=== PATIENT | male | born 1975 | race Caucasian/White ===

== ENCOUNTER 2023-10-31 17:08 | Inpatient (IN) | payer BC ==
[~2023-10-31] VITALS: Ht 182.9 cm; Wt 71.3 kg
[2023-10-31 18:46] LABS: Basophils # (auto) 0 10 ^3/uL (0-0.2); Eosinophils # (auto) 0.1 10 ^3/uL (0-0.8); Lymphocytes # (auto) 1.8 10 ^3/uL (0.4-5.4); Monocytes # (auto) 0.5 10 ^3/uL (0-1.3); Neutrophils # (auto) 3.8 10 ^3/uL (1.6-8.6); Nucleated Red Blood Cells % 0.2 %; White Blood Cell 6.2 10^3/uL (4.4-10.8)
[2023-10-31 18:48] LABS: Basophils % (auto) 0.4 % (0.0-2.0); Eosinophils % (auto) 1.3 % (0.0-7.0); Hematocrit 43.2 % (41.0-53.0); Lymphocytes % (auto) 28.6 % (10.0-50.0); Mean Corpuscular Hemoglobin 37.3 pg (28.0-32.0); Mean Corpuscular Hgb Conc. 34.8 g/dL (32.0-36.0); Mean Corpuscular Volume 107.2 fL (80.0-100.0); Monocytes % (auto) 8.6 % (0.0-12.0); Neutrophils % (auto) 61.1 % (37.0-80.0); Red Blood Cells 4.03 10^6/uL (4.5-5.90); Red Cell Distribution Width 12.4 % (11.8-14.3)
[2023-10-31 19:03] LABS: Chloride 107 mmol/L (98-107); Potassium 3.9 mmol/L (3.5-5.1); Sodium 138 mmol/L (136-145)
[2023-10-31 19:04] LABS: Anion Gap 8 (5-15); Calcium 9.3 mg/dL (8.7-10.4); Carbon Dioxide 23 mmol/L (20-30)
[2023-10-31 19:09] LABS: BUN/Creatinine Ratio 8.6 (10.0-20.0); Blood Urea Nitrogen 6 mg/dL (9-23); Glucose 91 mg/dL (74-106)
[2023-10-31] MEDS ORDERED: VANCOMYCIN 1GM/200ML 200 ML IV ONE (19:30)
[2023-10-31 20:44] LABS: Basophils # (auto) 0 10 ^3/uL (0-0.2); Eosinophils # (auto) 0.1 10 ^3/uL (0-0.8); Hemoglobin 13.5 g/dL (13.5-17.5); Monocytes # (auto) 0.4 10 ^3/uL (0-1.3); Nucleated Red Blood Cells % 0.1 %; Red Blood Cells 3.69 10^6/uL (4.5-5.90); White Blood Cell 5.4 10^3/uL (4.4-10.8)
[2023-10-31 20:46] LABS: Basophils % (auto) 0.3 % (0.0-2.0); Eosinophils % (auto) 1.2 % (0.0-7.0); Hematocrit 40.5 % (41.0-53.0); Lymphocytes # (auto) 1.7 10 ^3/uL (0.4-5.4); Lymphocytes % (auto) 31.6 % (10.0-50.0); Mean Corpuscular Hemoglobin 36.6 pg (28.0-32.0); Mean Corpuscular Hgb Conc. 33.3 g/dL (32.0-36.0); Mean Corpuscular Volume 109.9 fL (80.0-100.0); Monocytes % (auto) 7.6 % (0.0-12.0); Neutrophils # (auto) 3.2 10 ^3/uL (1.6-8.6); Neutrophils % (auto) 59.3 % (37.0-80.0); Red Cell Distribution Width 12.4 % (11.8-14.3)
[2023-10-31] MEDS ORDERED: DOCUSATE SOD 100 MG CAP PO PRN (21:00)
[2023-10-31] MEDS ORDERED: MORPHINE SULFATE INJ 2 MG/ml SYRG IV PRN ×2 (21:00→22:30)
[2023-10-31] MEDS ORDERED: hydrALAZINE HCL 20 MG/ML VL IV PRN (21:00)
[2023-10-31] MEDS ORDERED: ACETAMINOPHEN 325 MG TAB PO PRN (21:00)
[2023-10-31] MEDS: SODIUM CHLORIDE 0.9% 1,000 ML IV SCH (21:00)
[2023-10-31] MEDS ORDERED: ONDANSETRON HCL 4 MG/2 ML VIAL IV PRN (21:00)
[2023-10-31] MEDS ORDERED: VANCOMYCIN PER PHARMACY 0 MG IV SCH (21:00)
[2023-10-31] MEDS ORDERED: HYDROcodone-ACET 5/325MG TAB PO PRN (21:00)
[2023-10-31 21:45] VITALS: PULSE 63; RESP 18; O2SAT 96
[2023-10-31] MEDS ORDERED: SODIUM CHLORIDE 0.9% 1,000 ML IV ONE (22:15)
[2023-10-31] MEDS: ASCORBIC ACID 500 MG TAB PO SCH (22:19)
[2023-10-31] MEDS ORDERED: NITROGLYCERIN 0.4 MG SL TAB SL PRN (22:30)
[2023-11-01] MEDS: VANCOMYCIN 1GM/200ML 200 ML IV SCH ×3 (04:26→20:14)
[2023-11-01 05:22] VITALS: RESP 18
[2023-11-01 06:27] LABS: Basophils # (auto) 0 10 ^3/uL (0-0.2); Eosinophils # (auto) 0.1 10 ^3/uL (0-0.8); Lymphocytes % (auto) 28.8 % (10.0-50.0); Neutrophils # (auto) 2.1 10 ^3/uL (1.6-8.6); White Blood Cell 3.6 10^3/uL (4.4-10.8)
[2023-11-01 06:34] LABS: Hematocrit 37.3 % (41.0-53.0); Hemoglobin 12.7 g/dL (13.5-17.5); Mean Corpuscular Hgb Conc. 34.1 g/dL (32.0-36.0); Mean Corpuscular Volume 108.4 fL (80.0-100.0); Monocytes # (auto) 0.3 10 ^3/uL (0-1.3); Monocytes % (auto) 9.5 % (0.0-12.0); Neutrophils % (auto) 58.7 % (37.0-80.0); Red Blood Cells 3.44 10^6/uL (4.5-5.90); Red Cell Distribution Width 12.1 % (11.8-14.3)
[2023-11-01 06:40] LABS: Alanine Aminotransferase 47 U/L (7-40); Alkaline Phosphatase 80 U/L (46-116); Anion Gap 9 (5-15); BUN/Creatinine Ratio 11.1 (10.0-20.0); Blood Urea Nitrogen 6 mg/dL (9-23); Calcium 8.1 mg/dL (8.7-10.4); Carbon Dioxide 20 mmol/L (20-30); Chloride 108 mmol/L (98-107); Glucose 77 mg/dL (74-106); Potassium 3.7 mmol/L (3.5-5.1); Sodium 137 mmol/L (136-145)
[2023-11-01 06:41] LABS: Albumin 3.5 g/dL (3.2-4.8); Aspartate Aminotransferase 70 U/L (13-40); Bilirubin, Total 1.6 mg/dL (0.2-1.0); Total Protein 5.9 g/dL (5.7-8.2)
[2023-11-01] MEDS: ASCORBIC ACID 500 MG TAB PO SCH ×2 (08:21→21:14)
[2023-11-01] MEDS: ENOXAPARIN SOD 40 MG/0.4 ML SYRINGE SC SCH (08:22)
[2023-11-01] MEDS: ZINC SULFATE 220mg CAP or TAB PO SCH (08:22)
[2023-11-01] MEDS: cefTRIAXone 1GM/50ML D5W 50 ML IV SCH (08:22)
[2023-11-01 09:00] VITALS: BP 159/79; PULSE 92; RESP 16; TEMP 98; O2SAT 97
[2023-11-01 13:00] VITALS: BP 148/85; PULSE 73; RESP 12; TEMP 98.4; O2SAT 99
[2023-11-01] MEDS: SODIUM CHLORIDE 0.9% 1,000 ML IV SCH (13:40)
[2023-11-01] MEDS ORDERED: LORazepam 2MG/ML-1ML VIAL IV PRN (13:45)
[2023-11-01 17:00] VITALS: BP 134/83; PULSE 71; RESP 16; TEMP 98.1; O2SAT 99
[2023-11-01 20:00] VITALS: PULSE 69; RESP 16
[2023-11-01 22:00] VITALS: BP 128/83; PULSE 69; RESP 16; TEMP 97.4; O2SAT 98
[2023-11-02] MEDS: VANCOMYCIN 1GM/200ML 200 ML IV SCH ×2 (03:02→12:00)
[2023-11-02 05:00] VITALS: BP 117/88; PULSE 70; RESP 16; TEMP 97.5; O2SAT 99
[2023-11-02] MEDS: SODIUM CHLORIDE 0.9% 1,000 ML IV SCH (05:33)
[2023-11-02 08:00] VITALS: PULSE 69; RESP 18; O2SAT 96
[2023-11-02 09:00] VITALS: BP 134/80; PULSE 69; RESP 16; TEMP 98.6; O2SAT 99
[2023-11-02] MEDS: ENOXAPARIN SOD 40 MG/0.4 ML SYRINGE SC SCH (10:03)
[2023-11-02] MEDS: ZINC SULFATE 220mg CAP or TAB PO SCH (10:03)
[2023-11-02] MEDS: ASCORBIC ACID 500 MG TAB PO SCH (10:03)
[2023-11-02] MEDS: cefTRIAXone 1GM/50ML D5W 50 ML IV SCH (10:03)
[2023-11-02] MEDS ORDERED: LEVO750T40 PO (16:23)
[2023-11-02 17:00] VITALS: BP 143/86; PULSE 71; RESP 18; TEMP 98.6; O2SAT 100
== END 2023-11-02 17:22 | disposition home or self-care (01) | DRG 603 ==
LOC: ER 17:08 → OVERFLOW 22:31 → EAST 11-01 04:38
PROVIDERS: ADMIT Nurse Practitioner Family; ATTEND Nurse Practitioner Family
DX: L03.116 Cellulitis of left lower limb (principal); F10.139 Alcohol abuse with withdrawal, unspecified; F17.210 Nicotine dependence, cigarettes, uncomplicated; G62.9 Polyneuropathy, unspecified; I10 Essential (primary) hypertension; Z80.8 Family history of malignant neoplasm of other organs or systems
CPT/HCPCS: 36415; 73700; 73718; 80048; 80053; 80202; 82962; 83605; 85025; 87040; 87081; 96361; 96365; G0378

== ENCOUNTER 2025-04-08 12:48 | Inpatient (IN) | payer BC ==
[~2025-04-08] VITALS: Ht 185.4 cm; Wt 65.6 kg
[~2025-04-08 12:48] MED LIST: LEVO750T40 PO
--- NOTE | 2025-04-08 13:38 | ECG ---
[facility] Test Date: 2025-04-08 Test Time: 13:25:10 Pat Name: ELIZA COLON Department: ER Room: Gender: M Receiving Room Clerk: ALVAREZ : 1975 Requested By: NICK WHARTON Order Number: [id number] Reading MD: Measurements Intervals [place] Rate: 126 P: 69 IN: 111 QRS: 129 QRSD: 98 T: 77 QT: 427 QTc: 619 Interpretive Statements Sinus tachycardia Right axis deviation Abnormal R-wave progression, late transition Nonspecific T abnrm, anterolateral leads Prolonged QT interval Please click the below link to view image of tracing.
--- NOTE | 2025-04-08 13:46 | ED.PDOC ---
History of Present Illness HPI Comments 50 year old male with a Hx of Liver Failure and Alcohol Abuse presents to the ED for the c/c of Generalized weakness w/ associated Dizziness. Pt states that he fainted and fell backwards and landed on his head 2x weeks ago and has since felt weak and dizzy with no alleviating factors but a worsening factor of standing. Pt notes his last drink was right before presenting to the ED. Pt also notes of Marijuana and Tobacco use. No other associated symptoms, modifiers, recent injuries or sick contacts present at this time. Chief Complaint: General Weakness Time Seen by MD: 13:43 Primary Care Provider: CARLY Reviewed Notes: Nurses Notes, Medications, Allergies Allergies: Coded Allergies: NO KNOWN ALLERGIES (Unverified , 10/31/23) Home Meds Active Scripts Levofloxacin Hemihydrate (LEVOFLOXACIN) 750 Mg Tab, 1 TAB PO DAILY for 10 Days, #10 TAB Prov:JORGITO ABAD DO 11/02/23 Information Source: Patient Mode of Arrival: Ambulatory Severity: Moderate Timing: Weeks Duration: Since onset Prehospital treatment: None Past Medical History PAST MEDICAL HISTORY: HTN Surgical History: Cholecystectomy Family History Family History: Family hx of Cancer Social History Smoker: Cigarettes Alcohol: Heavy Drugs: Marijuana Lives In: Home Constitutional: reports: weakness; denies: chills, diaphoresis, fatigue, fever, malaise, sweats, others EENTM: denies: blurred vision, double vision, ear bleeding, ear discharge, ear drainage, ear pain, ear ringing, eye pain, eye redness, hearing loss, mouth pain, mouth swelling, nasal discharge, nose bleeding, nose congestion, nose pain, photophobia, tearing, throat pain, throat swelling, voice changes, others Respiratory: denies: cough, hemoptysis, orthopnea, SOB at rest, shortness of breath, SOB with excertion, stridor, wheezing, others Cardiovascular: denies: chest pain, dizzy spells, diaphoresis, Dyspnea on exertion, edema, irregular heart beat, left arm pain, lightheadedness, palpitations, PND, syncope, others Gastrointestinal: denies: abdomen distended, abdominal pain, blood streaked bowels, constipated, diarrhea, dysphagia, difficulty swallowing, hematemesis, melena, nausea, poor appetite, poor fluid intake, rectal bleeding, rectal pain, vomiting, others Genitourinary: denies: burning, dysuria, flank pain, frequency, hematuria, incontinence, penile discharge, penile sore, pain, testicle pain, testicle swelling, urgency, others Neurological: reports: dizziness; denies: fainting, headache, left sided numbness, left sided weakness, numbness, paresthesia, pre-existing deficit, right sided numbness, right sided weakness, seizure, speech problems, tingling, tremors, weakness, others Musculoskeletal: denies: back pain, gout, joint pain, joint swelling, muscle pain, muscle stiffness, neck pain, others Integumetry: denies: bruises, change in color, change in hair/nails, dryness, laceration, lesions, lumps, rash, wounds, others Allergic/Immunocompromised: denies: Difficulty Healing, Frequent Infections, Hives, Itching, others Hematologic/Lymphatic: denies: anemia, blood clots, easy bleeding, easy bruising, swollen glands, others Endocrine: denies: excessive hunger, excessive sweating, excessive thirst, excessive urination, flushing, intolerance to cold, intolerance to heat, unexplained weight gain, unexplained weight loss, others Psychiatric: denies: anxiety, bipolar disorder, depression, hopeless, panic disorder, schizophrenia, sleepless, suicidal, others All Other Systems: Reviewed and Negative Physical Exam General Appearance: Moderate Distress, Normal HEENT: Normal ENT Inspection, Pharynx Normal, TMs Normal Neck: Full Range of Motion, Non-Tender, Normal, Normal Inspection Respiratory: Chest Non-Tender, Lungs Clear, No Accessory Muscle Use, No Respiratory Distress, Normal Breath Sounds Cardiovascular: No Edema, No JVD, No Murmur, No Gallop, Normal Peripheral Pulses, Regular Rate/Rhythm Breast Exam: Deferred Gastrointestinal: No Organomegaly, Non Tender, No Pulsatile Mass, Normal Bowel Sounds, Soft Genitalia: Deferred Pelvic: Deferred Rectal: Deferred Extremities: No calf tenderness, Normal capillary refill, Normal inspection, Normal range of motion, Non-tender, No pedal edema Musculoskeletal : Apperance: Normal Neurologic: Alert, commercial interior designer II-XII nml as Tested, No Motor Deficits, Normal Affect, Normal Mood, No Sensory Deficits Cerebellar Function: NOT DONE Reflexes: NOT DONE Skin: Dry, Jaundice, Normal Color, Warm Peripheral Pulses: 3+ Radial (R), 3+ Radial (L) Lymphatic: No Adenopathy Was a procedure done? Was a procedure done?: No Differential Dx Considerations may include: Liver disease Electrolyte imbalance X-Ray, Labs, Meds, VS Vital Signs Date Time Temp Pulse Resp B/P (MAP) Pulse Ox O2 Delivery O2 Flow Rate FiO2 04/08/25 14:00 97.8 90 12 132/79 (96) 100 97.8 04/08/25 14:00 Room Air* 0 21 04/08/25 13:25 126 04/08/25 12:52 98.7 133 20 91/65 (74) 98 98.7 Lab Test 04/08/25 13:50 Range/Units White Blood Count 6.1 4.4-10.8 10^3/uL Red Blood Count 2.80 L 4.5-5.90 10^6/uL Hemoglobin 11.0 L 13.5-17.5 g/dL Hematocrit 31.8 L 41.0-53.0 % Mean Corpuscular Volume 113.5 H 80.0-100.0 fL Mean Corpuscular Hemoglobin 39.3 H 28.0-32.0 pg Mean Corpuscular Hemoglobin Concent 34.6 32.0-36.0 g/dL Red Cell Distribution Width 17.3 H 11.8-14.3 % Platelet Count 150 140-450 10^3/uL Mean Platelet Volume 9.1 6.9-10.8 fL Neutrophils (%) (Auto) 75.4 37.0-80.0 % Lymphocytes (%) (Auto) 13.6 10.0-50.0 % Monocytes (%) (Auto) 10.4 0.0-12.0 % Eosinophils (%) (Auto) 0.1 0.0-7.0 % Basophils (%) (Auto) 0.5 0.0-2.0 % Neutrophils # (Auto) 4.6 1.6-8.6 10 ^3/uL Lymphocytes # (Auto) 0.8 0.4-5.4 10 ^3/uL Monocytes # (Auto) 0.6 0-1.3 10 ^3/uL Eosinophils # (Auto) 0 0-0.8 10 ^3/uL Basophils # (Auto) 0 0-0.2 10 ^3/uL Nucleated Red Blood Cells 0.1 % Platelet Estimate Pending Prothrombin Time 17.5 H 9.3-11.8 sec Prothrombin Time INR 1.74 H 0.9-1.15 Activated Partial Thromboplast Time 41.0 H 24.5-34.5 SEC Sodium Level 134 L 136-145 mmol/L Potassium Level 4.1 3.5-5.1 mmol/L Chloride Level 91 L 98-107 mmol/L Carbon Dioxide Level 19 L 20-31 mmol/L Anion Gap 24 H 5-15 Blood Urea Nitrogen 8 L 9-23 mg/dL Creatinine 0.85 0.700-1.30 mg/dL Glomerular Filtration Rate Calc 105 >90 mL/min BUN/Creatinine Ratio 9.4 L 10.0-20.0 Serum Glucose 71 L 74-106 mg/dL Lactic Acid Level 13.2 *H 0.4-2.0 mmol/L Calcium Level 9.1 8.7-10.4 mg/dL Total Bilirubin 21.2 H 0.2-1.0 mg/dL Aspartate Amino Transferase (AST) 342 H 13-40 U/L Alanine Aminotransferase (ALT) 106 H 7-40 U/L Alkaline Phosphatase 309 H 46-116 U/L Total Protein 5.6 L 5.7-8.2 g/dL Albumin 3.0 L 3.2-4.8 g/dL Plasma/Serum Blood Alcohol 255.1 H <10 mg/dL Current Medications Medications (Trade) Dose Ordered Sig/Nicolás Route Start Time Stop Time Status Last Admin Vancomycin HCl 200 ml @ 200 mls/hr ONCE ONCE IV 04/08/25 13:45 04/08/25 14:44 DC 04/08/25 14:06 Patient alert. Vitals stable. He is jaundiced. Answering all questions. Possible sepsis. Establish intravenous access. Was given fluids. His last drink was few hours ago. Counseled patient on effects of drinking alcohol for 15 minutes. Explained to the patient. Continue monitoring. CT of the head reviewed within normal limits. Chest x-ray reviewed does not show any acute process. PATIENT: ELIZA COLON ACCT: [id number] UNIT: [id number] : 1975 LOC: ER ROOM / BED: / AGE / SEX: 50 / M ADM STATUS: REG ER SERVICE 1340 ORDERING PHYSICIAN: NICK WHARTON MD PROCEDURE(s): HWOCT - HEAD WITHOUT CONTRAST REASON: fall ORDER NUMBER(s): [id number], ACCESSION NUMBER(s): [id number] EXAM: CT HEAD WITHOUT CONTRAST HISTORY: fall COMPARISON: None TECHNIQUE: Noncontrast axial CT images of the head were performed. Sagittal and coronal reformatted images were obtained. This CT exam was performed using 1 or more of the following dose reduction techniques: Automated exposure control, adjustment of the mA and/or kv according to patient size, or the use of iterative reconstruction techniques. Radiation Dose: CTDI volume is 52.71 mGy. Dose-length product is 948.76 mGy*cm FINDINGS: There is mild global brain atrophy. There is minimal decreased attenuation in the periventricular white matter. No intracranial hemorrhage, mass, midline shift, hydrocephalus, or evidence of acute large vessel infarct. There is a small cavum septum pellucidum. There are atherosclerotic calcifications of the cavernous ICAs and left MCA M1 segment. The partially-visualized paranasal sinuses are clear. There may be an old right nasal bone fracture. The bilateral mastoid air cells and middle ear spaces are clear. No cranial fracture or scalp edema. IMPRESSION: 1. No acute intracranial process. 2. Atherosclerotic vascular disease. PATIENT: ELIZA COLON ACCT: [id number] UNIT: [id number] : 1975 LOC: ER ROOM / BED: / AGE / SEX: 50 / M ADM STATUS: REG ER SERVICE 1340 ORDERING PHYSICIAN: NICK WHARTON MD PROCEDURE(s): CXRP - CHEST PORTABLE REASON: sob ORDER NUMBER(s): [id number], ACCESSION NUMBER(s): [id number] EXAM: XY CHEST PORTABLE HISTORY: sob COMPARISON: None TECHNIQUE: Portable upright AP view of the chest was performed. FINDINGS: No pneumothorax, consolidative infiltrates, or pulmonary edema. The heart is not enlarged. There is mild thoracic degenerative disc disease. No fractures are identified about the bony thorax. IMPRESSION: No acute intrathoracic process. Time of 1ST Reevaluation: 14:13 Reevaluation 1ST: Unchanged Patient Education/Counseling: Diagnosis, Treatment, Need For Follow Up Family Education/Counseling: No Family Present SEPSIS Sepsis Screen Date sepsis recognized/suspect: Apr 08, 2025 Time Sepsis recognized/suspect: 1314 Recent Procedure: No On Antibiotic Therapy: No Respiratory Rate >20: No Heart Rate >90: Yes Temp<36 C (96.8 F) or >38.3 C: No SBP <90 or MAP <65 mmHG: No New Acute Mental Status Change: No Is the patient on CPAP, BIPAP,: No Physician Orders Complete Blood Count (04/08/25 13:40) Urinalysis (04/08/25 13:40) Chest Portable (04/08/25 13:40) Accucheck (04/08/25 13:40) Blood Culture (04/08/25 13:40) Cefepime 1gm/ 50ml (Maxipime 1gm/50ml) (04/08/25 14:00) Notify Md If Map <65 Or Bp<90 (04/08/25 13:40) If Map<65 Start Vasopressor (04/08/25 13:40) Head Without Contrast (04/08/25 13:40) Rbc Morphology (04/08/25 13:50) Vital Signs Date Time Temp Pulse Resp B/P (MAP) Pulse Ox O2 Delivery O2 Flow Rate FiO2 04/08/25 14:00 97.8 90 12 132/79 (96) 100 97.8 04/08/25 14:00 Room Air* 0 21 04/08/25 13:25 126 04/08/25 12:52 98.7 133 20 91/65 (74) 98 98.7 Laboratory Tests Test 04/08/25 13:50 Lactic Acid Level 13.2 mmol/L (0.4-2.0) *H White Blood Count 6.1 10^3/uL (4.4-10.8) Medications Medications Dose Ordered Sig/Nicolás Route Start Time Stop Time Status Last Admin Dose Admin Vancomycin HCl 200 ml @ 200 mls/hr ONCE ONCE IV 04/08/25 13:45 04/08/25 14:44 DC 04/08/25 14:06 Departure 1 Departure Time of Disposition: 14:33 Impression: Primary Impression: Sepsis, unspecified organism Qualified Codes: A41.9 - Sepsis, unspecified organism Additional Impression: Jaundice Disposition: ADMITTED INPATIENT Admit to: Med Surg Condition: Guarded Critical Care Note Critical Care Time?: Yes (90 min-critical care time only) Critical care comment: Fluids Stability Stability form required: No Heart Score Heart Score: Heart Score Response (Comments) Value History N/A 0 EKG N/A 0 Age N/A 0 Risk Factors N/A 0 Troponin N/A 0 Total 0 I personally scribed for NICK WHARTON MD ([email or web address]) on 04/08/25 at 13:46. Electronically submitted by Abebe Enriquez ([email or web address]). I personally scribed for NICK WHARTON MD ([email or web address]) on 04/08/25 at 14:44. Electronically submitted by Abebe Enriquez ([email or web address]). I personally scribed for NICK WHARTON MD ([email or web address]) on 04/08/25 at 14:45. Electronically submitted by Abebe Enriquez ([email or web address]). NICK WHARTON MD Apr 08, 2025 13:46
[2025-04-08] MEDS ORDERED: CEFEPIME 1GM/ 50ML 50 ML IV SCH (14:00)
[2025-04-08] MEDS ORDERED: CEFEPIME 1GM/ 50ML 50 ML IV ONE (14:00)
[2025-04-08] MEDS: VANCOMYCIN 1GM/200ML PM 200 ML IV ONE (14:06)
[2025-04-08 14:15] LABS: Hemoglobin 11.0 g/dL (13.5-17.5)
[2025-04-08 14:17] LABS: Hematocrit 31.8 % (41.0-53.0); Mean Corpuscular Hemoglobin 39.3 pg (28.0-32.0); Mean Corpuscular Volume 113.5 fL (80.0-100.0); Nucleated Red Blood Cells % 0.1 %
[2025-04-08 14:29] LABS: INR 1.74 (0.9-1.15); Partial Thromboplastin Time 41.0 SEC (24.5-34.5); Prothrombin Time 17.5 sec (9.3-11.8)
[2025-04-08 14:30] LABS: Anion Gap 24 (5-15); Calcium 9.1 mg/dL (8.7-10.4); Potassium 4.1 mmol/L (3.5-5.1)
[2025-04-08 14:33] LABS: Albumin 3.0 g/dL (3.2-4.8); Alkaline Phosphatase 309 U/L (46-116); Bilirubin, Total 21.2 mg/dL (0.2-1.0); Carbon Dioxide 19 mmol/L (20-31); Chloride 91 mmol/L (98-107); Glucose 71 mg/dL (74-106); Sodium 134 mmol/L (136-145)
--- NOTE | 2025-04-08 14:38 | DVH ---
EXAM: CT HEAD WITHOUT CONTRAST HISTORY: fall COMPARISON: None TECHNIQUE: Noncontrast axial CT images of the head were performed. Sagittal and coronal reformatted i mages were obtained. This CT exam was performed using 1 or more of the following dose reduction techn iques: Automated exposure control, adjustment of the mA and/or kv according to patient size, or the u se of iterative reconstruction techniques. Radiation Dose: CTDI volume is 52.71 mGy. Dose-length product is 948.76 mGy*cm FINDINGS: There is mild global brain atrophy. There is minimal decreased attenuation in the periventricular whi te matter. No intracranial hemorrhage, mass, midline shift, hydrocephalus, or evidence of acute large vessel infarct. There is a small cavum septum pellucidum. There are atherosclerotic calcifications o f the cavernous ICAs and left MCA M1 segment. The partially-visualized paranasal sinuses are clear. T here may be an old right nasal bone fracture. The bilateral mastoid air cells and middle ear spaces a re clear. No cranial fracture or scalp edema. IMPRESSION: 1. No acute intracranial process. 2. Atherosclerotic vascular disease.
--- NOTE | 2025-04-08 14:41 | DVH ---
EXAM: XY CHEST PORTABLE HISTORY: sob COMPARISON: None TECHNIQUE: Portable upright AP view of the chest was performed. FINDINGS: No pneumothorax, consolidative infiltrates, or pulmonary edema. The heart is not enlarged. There is m ild thoracic degenerative disc disease. No fractures are identified about the bony thorax. IMPRESSION: No acute intrathoracic process.
[2025-04-08 14:47] LABS: BUN/Creatinine Ratio 9.4 (10.0-20.0)
[2025-04-08 14:48] LABS: Alanine Aminotransferase 106 U/L (7-40); Blood Urea Nitrogen 8 mg/dL (9-23); Total Protein 5.6 g/dL (5.7-8.2)
[2025-04-08 14:50] LABS: Lactic Acid w/Reflex 13.2 mmol/L (0.4-2.0)
[2025-04-08] MEDS: CEFEPIME 1GM/ 50ML 50 ML IV SCH (16:00)
[2025-04-08 16:17] LABS: Anisocytosis Slight; Macrocytosis Moderate
[2025-04-08 16:19] LABS: Polychromasia Slight; Stomatocytes Few
[2025-04-08] MEDS ORDERED: ONDANSETRON HCL 4 MG/2 ML VIAL IV PRN (20:15)
[2025-04-08] MEDS ORDERED: VANCOMYCIN PER PHARMACY 0 MG IV SCH (20:15)
[2025-04-08] MEDS ORDERED: HYDROcodone-ACET 5/325MG TAB PO PRN (20:15)
[2025-04-08] MEDS ORDERED: IBUPROFEN 400 MG TAB PO PRN (20:15)
[2025-04-08 20:56] LABS: Lactic Acid w/Reflex 9.0 mmol/L (0.4-2.0)
[2025-04-08] MEDS: SODIUM CHLORIDE 0.9% 500 ML IV ONE (21:15)
[2025-04-08] MEDS: LACTULOSE 20Gm/30ML SOLN PO SCH (21:56)
[2025-04-08] MEDS: SODIUM CHLORIDE 0.9% 1,000 ML IV SCH (22:15)
[2025-04-08 22:50] LABS: Urine Budding Yeast OCCASIONAL /hpf (None Seen); Urine Protein, UAD Negative (Negative)
--- NOTE | 2025-04-08 23:29 | DVH ---
ABDOMINAL ULTRASOUND CLINICAL HISTORY: Elevated total bilirubin TECHNIQUE: Multiple grayscale and color Doppler ultrasound images were obtained of the abdomen. WID: COMPARISON: None FINDINGS: Liver and Biliary System: Increased echogenicity, mildly enlarged measuring 21 cm. No focal hepatic observations. No intrahepatic bile duct dilatation. The common duct measures 7.69 mm at the cristina hepatis. The gallbladder is surgically absent Pancreas: Visualized portions are unremarkable. Kidneys: The right kidney is 11.67 cm . No hydronephrosis, increased echogenicity, shadowing stone, or focal lesion. There is perihepatic ascites. IMPRESSION: Hepatomegaly with diffuse hepatic steatosis. Mild dilatation of the common bile duct which could reflect choledocho ectasia status post cholecyste ctomy.
--- NOTE | 2025-04-08 23:52 | DVH ---
CLINICAL HISTORY: abnormal lfts TECHNIQUE: CT of the abdomen and pelvis was performed without intravenous contrast. This exam was per formed according to our departmental dose optimization program. Up-to-date CT equipment and radiation dose reduction techniques are utilized as appropriate. CTDI: 6.59+ 0.14 DLP: 404.45 WID: COMPARISON: None FINDINGS: Lower Thorax: Normal-sized heart with trace pericardial fluid. Coronary artery calcifications up to m [id number] in the left anterior descending coronary artery. Lung bases are clear. Liver and Biliary system: Hepatomegaly with the right lobe of the liver measuring 22 cm craniocaudal, with marked hepatic steatosis. No discrete hepatic lesion. The gallbladder is surgically absent. No biliary ductal dilatation. Very Mild nodular contour of the liver. Spleen: Unremarkable. Adrenal Glands and Kidneys: Unremarkable. Pancreas and Retroperitoneum: Mild peripancreatic soft tissue thickening and fluid. There is no retr operitoneal lymphadenopathy. Aorta and Major Vessels: Aortoiliac vessels are normal in caliber with mild calcified atherosclerotic plaque. Bowel, Mesentery and Peritoneal space: Normal caliber small and large bowel. Normal appendix. Moderat e distal colonic diverticulosis. Mild ascites. There is mild mesenteric venous congestion. There is no free intraperitoneal air or fluid collection. Pelvis: Calcification of the bilateral vas deferens. Dystrophic calcifications in the prostate gland . There is no pelvic lymphadenopathy. Urinary bladder is mildly distended. Abdominal wall and Osseous Structures: Small fat containing umbilical hernia. Multilevel lower thorac ic and lumbar spondylosis. There is right L5 spondylolysis. No destructive osseous lesion. IMPRESSION: Hepatomegaly with marked hepatic steatosis Very mild peripancreatic soft tissue thickening/fluid. Correlate with lipase and amylase for acute p ancreatitis. Very mild nodular contour of the liver which could be fibrosis or early cirrhosis. Moderate distal colonic diverticulosis. Mild ascites.
[2025-04-09] VITALS (7 sets, daily range): BP systolic 116–134; BP diastolic 75–81; PULSE 74–89; RESP 10–20; TEMP 98.2–98.6; O2SAT 97–99
[2025-04-09 00:16] LABS: Anion Gap 13 (5-15); Carbon Dioxide 27 mmol/L (20-31); Chloride 98 mmol/L (98-107); Glucose 89 mg/dL (74-106); Potassium 3.8 mmol/L (3.5-5.1); Sodium 138 mmol/L (136-145)
[2025-04-09 00:17] LABS: Albumin 2.6 g/dL (3.2-4.8); Alkaline Phosphatase 264 U/L (46-116); Bilirubin, Total 18.5 mg/dL (0.2-1.0); Calcium 8.1 mg/dL (8.7-10.4)
[2025-04-09 00:28] LABS: BUN/Creatinine Ratio 11.3 (10.0-20.0)
[2025-04-09 00:29] LABS: Alanine Aminotransferase 92 U/L (7-40); Blood Urea Nitrogen 6 mg/dL (9-23); Total Protein 5.2 g/dL (5.7-8.2)
[2025-04-09] MEDS ORDERED: MORPHINE SULFATE INJ 2 MG/ml SYRG IV PRN (00:45)
[2025-04-09] MEDS ORDERED: NITROGLYCERIN 0.4 MG SL TAB SL PRN (00:45)
--- NOTE | 2025-04-09 01:06 | DVHHP2 ---
History of Present Illness Reason for Visit: Generalized weakness History of Present Illness The patient is a 50-year-old male with past medical history of EtOH abuse, hypertension, and liver cirrhosis who presented to [facility] ED with complaint of generalized weakness. Patient reports he has been experiencing generalized weakness for the past 2 weeks, associated with dizziness, fainting sensation, jaundice, getting worse today that prompted this visit. Patient was seen and evaluated in the ED, laboratory data shows WBC 6.1, hemoglobin 11.0, hematocrit 31.8, platelets 150, sodium 134, potassium 4.1, BUN 8, creatinine 0.85, glucose 71, calcium 9.1, protein 5.6, albumin 3.0, lactic acid 11.7 trending down to 7.3, AST 342, ALT 106, alkaline phos 309, total bilirubin 21.2, ammonia 24, PT 17.5, INR 1.74, PTT 41.0, blood pressure 114/72, heart rate 84, temperature 97.8 F, O2 saturation 98% on oxygen. Liver ultrasound revealing hepatomegaly with diffuse hepatic steatosis, mild dilatation of the common bile duct which could reflect choledocho ectasia status post cholecystectomy. Please see medication orders section in the computer. On my assessment, patient denied chest pain, no headache, no dizziness, no diaphoresis, currently on oxygen, no abdominal pain, no nausea, no vomiting, no fever, no chills. Patient was admitted for further evaluation and medical management. Past Medical History HTN, Liver cirrhosis, EtOH abuse Past Surgical History Cholecystectomy Family History Reviewed, noncontributory to the management of this case. Past Social History The patient lives at home, smokes cigarettes, drinks alcohol heavily, uses marijuana. Review of Systems Constitutional: Yes: Weakness; No: Fever, Chills, Sweats, Malaise, Other Eyes: No: Pain, Vision change, Conjunctivae inflammation, Eyelid inflammation, Other, Redness ENT: No: Ear pain, Ear discharge, Nose pain, Nose discharge, Nose congestion, Mouth pain, Mouth swelling, Throat pain, Throat swelling, Other Respiratory: Shortness of breath; No: Cough, Dry, SOB with excertion, Wheezing, Hemoptysis, Pleuritic Pain, Sputum, Wheezing, Other Cardiovascular: No: Chest Pain, Palpitations, Orthopnea, Paroxysmal Noc. Dyspnea, Edema, Lt Headedness, Other Gastrointestinal: No: Nausea, Vomiting, Abdominal Pain, Diarrhea, Constipation, Melena, Hematochezia, Other Genitourinary: No Dysuria, No Frequency, No Incontinence, No Hematuria, No Retention, No Other Musculoskeletal: No: other, neck pain, shoulder pain, arm pain, back pain, hand pain, leg pain, foot pain Skin: Jaundice; No: Rash, Lesions, Bruising, Other Neurological: Other (Dizziness); No: Weakness, Numbness, Incoordination, Change in speech, Confusion, Seizures Allergies: Coded Allergies: NO KNOWN ALLERGIES (Unverified , 10/31/23) Medications Current Medications Medications Dose Ordered Sig/Nicolás Route Start Time Stop Time Status Last Admin Dose Admin Cefepime HCl 50 ml @ 12.5 mls/hr Q8H IV 04/08/25 16:00 04/08/25 16:00 12.5 MLS/HR Vancomycin HCl 0 ml @ 0 mls/hr UD IV 04/08/25 20:15 UNV Ibuprofen 400 mg Q6HP PRN PO 04/08/25 20:15 Lactulose 30 ml BID PO 04/08/25 22:00 04/08/25 21:56 30 ML Acetaminophen/ Hydrocodone Bitart 1 tab Q4HP PRN PO 04/08/25 20:15 Ondansetron HCl 4 mg Q4HP PRN IV 04/08/25 20:15 Sodium Chloride 1,000 ml @ 75 mls/hr [id number] IV 04/08/25 20:15 04/08/25 22:15 75 MLS/HR Exam Vital Signs Vital Signs Date Time Temp Pulse Resp B/P (MAP) Pulse Ox O2 Delivery O2 Flow Rate FiO2 04/08/25 22:00 91 10 142/73 (96) 98 04/08/25 18:00 97.8 97.8 04/08/25 14:00 Room Air* 0 21 General Appearance: Alert, Oriented X3, Cooperative, No acute distress HEENT: Atraumatic, PERRLA, EOMI, Mucous membr. moist/pink Respiratory: Normal air movement Cardiovascular: Regular rate, Normal S1, Normal S2, No murmurs Abdominal: Normal bowel sounds, Soft, No tenderness, No hepatospenomegaly, No masses Extremities: No clubbing, No cyanosis, No edema, Normal pulses, No tenderness/swelling Skin: No rashes, No significant lesion Neuro: Normal speech, Normal tone, Sensation intact, Cranial nerves 3-12 NL, Reflexes 2+, Other (Generalized weakness) Psych/Mental Status: Mental status NL, Mood NL Labs/Xrays Labs Test 04/08/25 23:42 04/08/25 22:20 04/08/25 22:14 04/08/25 20:19 Range/Units Sodium Level 138 136-145 mmol/L Potassium Level 3.8 3.5-5.1 mmol/L Chloride Level 98 98-107 mmol/L Carbon Dioxide Level 27 20-31 mmol/L Anion Gap 13 5-15 Blood Urea Nitrogen 6 L 9-23 mg/dL Creatinine 0.53 L 0.700-1.30 mg/dL Glomerular Filtration Rate Calc 121 >90 mL/min BUN/Creatinine Ratio 11.3 10.0-20.0 Serum Glucose 89 74-106 mg/dL Calcium Level 8.1 L 8.7-10.4 mg/dL Total Bilirubin 18.5 H 0.2-1.0 mg/dL Aspartate Amino Transferase (AST) 315 H 13-40 U/L Alanine Aminotransferase (ALT) 92 H 7-40 U/L Alkaline Phosphatase 264 H 46-116 U/L Total Protein 5.2 L 5.7-8.2 g/dL Albumin 2.6 L 3.2-4.8 g/dL Urine Color Dark-yellow Yellow Urine Clarity Turbid H Clear Urine pH 6.0 5.0-9.0 Urine Specific [place] 1.006 1.001-1.035 Urine Protein Negative Negative Urine Ketones Trace Negative Urine Blood Negative Negative /uL Urine Nitrite Negative Negative Urine Bilirubin 2+ Negative Urine Urobilinogen Normal Negative mg/dL Urine Leukocyte Esterase Negative Negative /uL Urine RBC 1 0 - 3 /hpf Urine Microscopic WBC < 1 0-3 /HPF Urine Squamous Epithelial Cells None seen <5 /hpf Urine Bacteria Few H None Seen /hpf Urine Yeast (Budding) Occasional None Seen /hpf Urine Glucose Normal Normal mg/dL Lactic Acid Level 7.3 *H 0.4-2.0 mmol/L Direct Bilirubin 15.5 H <0.3 mg/dL Ammonia 24 11-32 umol/L Test 04/08/25 13:50 Range/Units White Blood Count 6.1 4.4-10.8 10^3/uL Red Blood Count 2.80 L 4.5-5.90 10^6/uL Hemoglobin 11.0 L 13.5-17.5 g/dL Hematocrit 31.8 L 41.0-53.0 % Mean Corpuscular Volume 113.5 H 80.0-100.0 fL Mean Corpuscular Hemoglobin 39.3 H 28.0-32.0 pg Mean Corpuscular Hemoglobin Concent 34.6 32.0-36.0 g/dL Red Cell Distribution Width 17.3 H 11.8-14.3 % Platelet Count 150 140-450 10^3/uL Mean Platelet Volume 9.1 6.9-10.8 fL Neutrophils (%) (Auto) 75.4 37.0-80.0 % Lymphocytes (%) (Auto) 13.6 10.0-50.0 % Monocytes (%) (Auto) 10.4 0.0-12.0 % Eosinophils (%) (Auto) 0.1 0.0-7.0 % Basophils (%) (Auto) 0.5 0.0-2.0 % Neutrophils # (Auto) 4.6 1.6-8.6 10 ^3/uL Lymphocytes # (Auto) 0.8 0.4-5.4 10 ^3/uL Monocytes # (Auto) 0.6 0-1.3 10 ^3/uL Eosinophils # (Auto) 0 0-0.8 10 ^3/uL Basophils # (Auto) 0 0-0.2 10 ^3/uL Nucleated Red Blood Cells 0.1 % Platelet Estimate [place] Large Platelets Few Polychromasia Slight Poikilocytosis (manual) Moderate Anisocytosis (manual) Slight Macrocytosis Moderate Target Cells Few Stomatocytes Few Prothrombin Time 17.5 H 9.3-11.8 sec Prothrombin Time INR 1.74 H 0.9-1.15 Activated Partial Thromboplast Time 41.0 H 24.5-34.5 SEC Plasma/Serum Blood Alcohol 255.1 H <10 mg/dL PATIENT: ELIZA COLON ACCT: [id number] UNIT: [id number] : 1975 LOC: ER ROOM / BED: / AGE / SEX: 50 / M ADM STATUS: REG ER SERVICE 99 ORDERING PHYSICIAN: NATAN MATTHEWS MD PROCEDURE(s): ABPL - CT AB PEL WO CON-NO ORAL OR IV REASON: abnormal lfts ORDER NUMBER(s): [id number], ACCESSION NUMBER(s): [id number] CLINICAL HISTORY: abnormal lfts TECHNIQUE: CT of the abdomen and pelvis was performed without intravenous contrast. This exam was performed according to our departmental dose optimization program. Up-to-date CT equipment and radiation dose reduction techniques are utilized as appropriate. CTDI: 6.59+ 0.14 DLP: 404.45 WID: COMPARISON: None FINDINGS: Lower Thorax: Normal-sized heart with trace pericardial fluid. Coronary artery calcifications up to [id number] in the left anterior descending coronary artery. Lung bases are clear. Liver and Biliary system: Hepatomegaly with the right lobe of the liver measuring 22 cm craniocaudal, with marked hepatic steatosis. No discrete hepatic lesion. The gallbladder is surgically absent. No biliary ductal dilatation. Very Mild nodular contour of the liver. Spleen: Unremarkable. Adrenal Glands and Kidneys: Unremarkable. Pancreas and Retroperitoneum: Mild peripancreatic soft tissue thickening and fluid. There is no retroperitoneal lymphadenopathy. Aorta and Major Vessels: Aortoiliac vessels are normal in caliber with mild calcified atherosclerotic plaque. Bowel, Mesentery and Peritoneal space: Normal caliber small and large bowel. No rmal appendix. Moderate distal colonic diverticulosis. Mild ascites. There is mild mesenteric venous congestion. There is no free intraperitoneal air or fluid collection. Pelvis: Calcification of the bilateral vas deferens. Dystrophic calcifications in the prostate gland. There is no pelvic lymphadenopathy. Urinary bladder is mildly distended. Abdominal wall and Osseous Structures: Small fat containing umbilical hernia. Multilevel lower thoracic and lumbar spondylosis. There is right L5 spondylolysis. No destructive osseous lesion. IMPRESSION: Hepatomegaly with marked hepatic steatosis Very mild peripancreatic soft tissue thickening/fluid. Correlate with lipase and amylase for acute pancreatitis. Very mild nodular contour of the liver which could be fibrosis or early cirrhosis. Moderate distal colonic diverticulosis. Mild ascites. ORDERING PHYSICIAN: NICHOLAS GONSALVES DNP PROCEDURE(s): LIVUS - LIVER REASON: Elevated total bilirubin ORDER NUMBER(s): [id number], ACCESSION NUMBER(s): [id number] ABDOMINAL ULTRASOUND CLINICAL HISTORY: Elevated total bilirubin TECHNIQUE: Multiple grayscale and color Doppler ultrasound images were obtained of the abdomen. WID: COMPARISON: None FINDINGS: Liver and Biliary System: Increased echogenicity, mildly enlarged measuring 21 cm. No focal hepatic observations. No intrahepatic bile duct dilatation. The common duct measures 7.69 mm at the cristina hepatis. The gallbladder is surgically absent Pancreas: Visualized portions are unremarkable. Kidneys: The right kidney is 11.67 cm. No hydronephrosis, increased echogenicity, shadowing stone, or focal lesion. There is perihepatic ascites. IMPRESSION: Hepatomegaly with diffuse hepatic steatosis. Mild dilatation of the common bile duct which could reflect choledocho ectasia status post cholecystectomy. ORDERING PHYSICIAN: NICK WHARTON MD PROCEDURE(s): HWOCT - HEAD WITHOUT CONTRAST REASON: fall ORDER NUMBER(s): [id number], ACCESSION NUMBER(s): [id number] EXAM: CT HEAD WITHOUT CONTRAST HISTORY: fall COMPARISON: None TECHNIQUE: Noncontrast axial CT images of the head were performed. Sagittal and coronal reformatted images were obtained. This CT exam was performed using 1 or more of the following dose reduction techniques: Automated exposure control, adjustment of the mA and/or kv according to patient size, or the use of iterative reconstruction techniques. Radiation Dose: CTDI volume is 52.71 mGy. Dose-length product is 948.76 mGy*cm FINDINGS: There is mild global brain atrophy. There is minimal decreased attenuation in the periventricular white matter. No intracranial hemorrhage, mass, midline shift, hydrocephalus, or evidence of acute large vessel infarct. There is a s mall cavum septum pellucidum. There are atherosclerotic calcifications of the cavernous ICAs and left MCA M1 segment. The partially-visualized paranasal sinuses are clear. There may be an old right nasal bone fracture. The bilateral mastoid air cells and middle ear spaces are clear. No cranial fracture or scalp edema. IMPRESSION: 1. No acute intracranial process. 2. Atherosclerotic vascular disease. ORDERING PHYSICIAN: NICK WHARTON MD PROCEDURE(s): CXRP - CHEST PORTABLE REASON: sob ORDER NUMBER(s): [id number], ACCESSION NUMBER(s): [id number] EXAM: XY CHEST PORTABLE HISTORY: sob COMPARISON: None TECHNIQUE: Portable upright AP view of the chest was performed. FINDINGS: No pneumothorax, consolidative infiltrates, or pulmonary edema. The heart is not enlarged. There is mild thoracic degenerative disc disease. No fractures are yassine ntified about the bony thorax. IMPRESSION: No acute intrathoracic process. Assessment/Plan Assessment/Plan Generalized weakness Elevated lactic acid level Hyperbilirubinemia Coagulopathy Liver cirrhosis Sepsis, unspecified organism Elevated liver enzymes Plan 1. Admit to telemetry unit 2. Breathing treatment 3. Pain control management 4. IV antibiotic management 5. Management of fluids and electrolytes 6. Consultation for GI/hospitalist 7. Diagnostic test liver ultrasound 8. DVT prophylaxis-on SCDs 9. Repeat labs CBC, CMP in a.m. 10. Home medication reviewed and reconciled 11. Continue with current medical management 12. Treatment plan discussed with patient and RN. Patient verbalized understanding. Plan discussed with: Patient, Other (RN) My Orders Orders - NICHOLAS GONSALVES DNP Procedure Category Date Status Time Vancomycin Per PHA 04/08/25 Pending Pharmacy 20:15 * [employer] Developer CONS 04/08/25 Transmitted 20:05 Ibuprofen Tablet PHA 04/08/25 In Process (Motrin Tablet) 20:15 Lactulose Oral PHA 04/08/25 In Process 22:00 Allergies BRENDA 04/08/25 In Process 20:05 Code Status CODE 04/08/25 Transmitted 20:05 Oxygen Per Hour RT 04/08/25 Transmitted 20:05 Hydrocodone-Acet PHA 04/08/25 In Process 5/325mg Tab (Needles 20:15 Ondansetron Hcl PHA 04/08/25 In Process (Zofran) 20:15 Fall Risk Precautions BRENDA 04/08/[address] 20:05 Complete Blood Count LAB 04/09/25 Logged 04:00 Comprehensive LAB 04/09/25 Logged Metabolic Panel 04:00 Cardiac DIET 04/09/25 Transmitted Diet-2gna,Lofat,Lochol Breakfast Condition: Serious BRENDA 04/08/25 In Process 20:05 Maintain Bed Rest BRENDA 04/08/25 In Process 20:05 Sequential BRENDA 04/08/25 In Process Compression Device Sodium Chloride 0.9% PHA 04/08/25 In Process 20:15 LIVER US 04/08/25 Resulted 21:01 Prednisolone PHA 04/09/25 Transmitted 10:00 Prednisolone PHA 04/09/25 Transmitted 00:45 Admit ADMIT 04/09/25 Transmitted 00:32 Nitroglycerin PHA 04/09/25 Transmitted Sublingual (Ntrostat 00:45 Morphine Sulfate PHA 04/09/25 Transmitted Injection 00:45 Stat Ekg For Chest [facility] 04/09/25 Transmitted Pain 00:32 Notify Of Changes [facility] 04/09/25 Transmitted From Base 00:32 Marine Diesel Mechanic For [facility] 04/09/25 Transmitted 24 Hours 00:32 Emergency Dysrhythmia [facility] 04/09/25 Transmitted Protocol 00:32 Rhythm Strips Once [facility] 04/09/25 Transmitted Every Shift 00:32 Oxygen By Nasal 04/09/25 Transmitted Cannula 00:32 Problem List: (1) Generalized weakness (2) Elevated lactic acid level (3) Liver cirrhosis (4) Coagulopathy (5) Hyperbilirubinemia (6) Sepsis, unspecified organism (7) Elevated liver enzymes Date of Service: Apr 09, 2025 Billing Provider: NICHOLAS GONSALVES DNP Common Visit Codes: [id number] INP/OBS CARE (HIGH) NICHOLAS GONSALVES DNP Apr 09, 2025 01:06
[2025-04-09] MEDS: prednisoLONE 15 MG/5 ML ORAL UD PO ONE (02:20)
[2025-04-09] MEDS ORDERED: GABA300T4 PO (04:07)
[2025-04-09 04:47] LABS: Anion Gap 14 (5-15); Calcium 8.8 mg/dL (8.7-10.4); Carbon Dioxide 26 mmol/L (20-31); Glucose 87 mg/dL (74-106); Sodium 138 mmol/L (136-145)
[2025-04-09 04:49] LABS: BUN/Creatinine Ratio 10.3 (10.0-20.0)
[2025-04-09 04:50] LABS: Alanine Aminotransferase 95 U/L (7-40); Albumin 2.7 g/dL (3.2-4.8); Alkaline Phosphatase 284 U/L (46-116); Bilirubin, Total 19.4 mg/dL (0.2-1.0); Blood Urea Nitrogen 6 mg/dL (9-23); Chloride 98 mmol/L (98-107); Potassium 3.5 mmol/L (3.5-5.1); Total Protein 5.3 g/dL (5.7-8.2)
[2025-04-09 05:16] LABS: Hematocrit 29.9 % (41.0-53.0); Hemoglobin 10.6 g/dL (13.5-17.5); Mean Corpuscular Hemoglobin 39.4 pg (28.0-32.0); Mean Corpuscular Volume 111.1 fL (80.0-100.0); Nucleated Red Blood Cells % 0.1 %
[2025-04-09 06:37] LABS: Macrocytosis Moderate
[2025-04-09 06:38] LABS: Stomatocytes Moderate
[2025-04-09] MEDS: VANCOMYCIN 750mg/150ml 150 ML IV SCH (13:54)
--- NOTE | 2025-04-09 18:02 | DVHPN2 ---
Subjective I am assuming the care of the patient from today onwards who was under the care of the hospitalist team. Patient's has a here for generalized weakness and fall found to have possibly alcohol withdrawal syndrome. Changes from previous H/P or p: No Changes Eyes: No Pain, No Vision change, No Conjunctivae inflammation, No Eyelid inflammation, No Other, No Redness ENT: No Ear pain, No Ear discharge, No Nose pain, No Nose discharge, No Nose congestion, No Mouth pain, No Mouth swelling, No Throat pain, No Throat swelling, No Other Cardiovascular: No Chest Pain, No Palpitations, No Orthopnea, No Paroxysmal Noc. Dyspnea, No Edema, No Lt Headedness, No Other Respiratory: No Cough, No Dry; Shortness of breath; No SOB with excertion, No Wheezing, No Hemoptysis, No Pleuritic Pain, No Sputum, No Other Gastrointestinal: No Nausea, No Vomiting, No Abdominal Pain, No Diarrhea, No Constipation, No Melena, No Hematochezia, No Other Genitourinary: No Dysuria, No Frequency, No Incontinence, No Hematuria, No Retention, No Other Musculoskeletal: No other, No neck pain, No shoulder pain, No arm pain, No back pain, No hand pain, No leg pain, No foot pain Skin: No Rash, No Lesions; Jaundice; No Bruising, No Other Objective Vitals Vital Signs Date Time Temp Pulse Resp B/P (MAP) Pulse Ox O2 Delivery O2 Flow Rate FiO2 04/09/25 17:00 98.2 89 20 134/81 (98) 99 98.2 04/09/25 08:00 Room Air* 0 21 Intake/Output Intake and Output 04/09/25 07:00 Intake Total 962.5 ml Balance 962.5 ml Intake IV Total 962.5 ml Exam HEENT pupils are reactive positive scleral icterus Neck is supple CV is S1-S2 regular rate and rhythm Respiratory diminished breath sounds bases GI positive bowel sounds 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 Medications Current Medications Medications Dose Ordered Sig/Nicolás Route Start Time Stop Time Status Last Admin Dose Admin Cefepime HCl 50 ml @ 12.5 mls/hr Q8H IV 04/08/25 16:00 04/09/25 08:11 12.5 MLS/HR Vancomycin HCl 0 ml @ 0 mls/hr UD IV 04/08/25 20:15 Ibuprofen 400 mg Q6HP PRN PO 04/08/25 20:15 Lactulose 30 ml BID PO 04/08/25 22:00 04/09/25 09:46 30 ML Acetaminophen/ Hydrocodone Bitart 1 tab Q4HP PRN PO 04/08/25 20:15 Ondansetron HCl 4 mg Q4HP PRN IV 04/08/25 20:15 Sodium Chloride 1,000 ml @ 75 mls/hr [id number] IV 04/08/25 20:15 04/08/25 22:15 75 MLS/HR Prednisone 10 mg DAILY PO 04/10/25 10:00 Nitroglycerin 0.4 mg Q5MINP PRN SL 04/09/25 00:45 Morphine Sulfate 2 mg Q30M PRN IV 04/09/25 00:45 Vancomycin HCl 150 ml @ 150 mls/hr Q8H IV 04/09/25 14:00 04/09/25 13:54 150 MLS/HR Laboratory Results Laboratory Tests 04/09/25 03:39 Chemistry Test 04/08/25 23:42 04/09/25 03:39 Albumin 2.6 g/dL (3.2-4.8) L 2.7 g/dL (3.2-4.8) L Calcium Level 8.1 mg/dL (8.7-10.4) L 8.8 mg/dL (8.7-10.4) Total Protein 5.2 g/dL (5.7-8.2) L 5.3 g/dL (5.7-8.2) L LFT Test 04/08/25 20:19 04/08/25 23:42 04/09/25 03:39 Direct Bilirubin 15.5 mg/dL (<0.3) H Alanine Aminotransferase (ALT) 92 U/L (7-40) H 95 U/L (7-40) H Alkaline Phosphatase 264 U/L (46-116) H 284 U/L (46-116) H Aspartate Amino Transferase (AST) 315 U/L (13-40) H 327 U/L (13-40) H Total Bilirubin 18.5 mg/dL (0.2-1.0) H 19.4 mg/dL (0.2-1.0) H Urinalysis Test 04/08/25 22:20 Urine Color Dark-yellow (Yellow) Urine Clarity Turbid (Clear) H Urine pH 6.0 (5.0-9.0) Urine Specific [place] 1.006 (1.001-1.035) Urine Protein Negative (Negative) Urine Ketones Trace (Negative) Urine Blood Negative /uL (Negative) Urine Nitrite Negative (Negative) Urine Bilirubin 2+ (Negative) Urine Urobilinogen Normal mg/dL (Negative) Urine Leukocyte Esterase Negative /uL (Negative) Urine RBC 1 /hpf (0 - 3) Urine Microscopic WBC < 1 /HPF (0-3) Urine Squamous Epithelial Cells None seen /hpf (<5) Urine Bacteria Few /hpf (None Seen) H Urine Yeast (Budding) Occasional /hpf (None Urine Glucose Normal mg/dL (Normal) Microbiology Microbiology Date/Time Source Procedure Growth Status 04/08/25 14:00 Blood Blood Culture - Preliminary NO GROWTH AFTER 24 HOURS OF INCUBATION. Resulted Assessment/Plan Assessment/Plan 69-year-old male with a known history of liver cirrhosis secondary to chronic alcoholism initially presented to the hospital with generalized weakness found to have 1. Alcohol withdrawal syndrome 2. Chronic alcoholism 3. Transaminitis with the elevated bilirubin with jaundice 4. Coagulopathy secondary to liver cirrhosis 5. Pancytopenia secondary to liver disease 6. Lactic acidosis secondary to liver disease -banana bag, watch for alcohol withdrawal syndrome/delirium tremens GI consultation. Plan discussed with: Patient My Orders Orders - JAM NUR MD Procedure Category Date Status Time Banana Bag D5w PHA 04/09/25 Transmitted 18:00 Date of Service: Apr 09, 2025 Billing Provider: JAM NUR MD Common Visit Codes: [id number] INP/OBS CARE(MOD) JAM NUR MD Apr 09, 2025 18:02
[2025-04-09] MEDS: FOLIC ACID 1 MG, MULTIPLE VITAMIN 10 ML, MAGNESIUM SULF SDV 50% 8 MEQ, THIAMINE INJ 100... INJ SCH (21:38)
[2025-04-10] VITALS (9 sets, daily range): BP systolic 103–126; BP diastolic 69–83; PULSE 66–93; RESP 16–19; TEMP 97.7–98.3; O2SAT 94–99
[2025-04-10 06:00] LABS: Hematocrit 27.5 % (41.0-53.0); Hemoglobin 9.9 g/dL (13.5-17.5); Mean Corpuscular Hemoglobin 40.0 pg (28.0-32.0)
[2025-04-10 06:02] LABS: Nucleated Red Blood Cells % 0.1 %
[2025-04-10 06:07] LABS: Mean Corpuscular Volume 110.9 fL (80.0-100.0)
[2025-04-10 06:25] LABS: Anion Gap 11 (5-15); Carbon Dioxide 29 mmol/L (20-31); Glucose 103 mg/dL (74-106); Magnesium 2.0 mg/dL (1.6-2.6)
[2025-04-10 06:27] LABS: Albumin 2.6 g/dL (3.2-4.8); Alkaline Phosphatase 254 U/L (46-116); Bilirubin, Total 21.1 mg/dL (0.2-1.0); Calcium 8.5 mg/dL (8.7-10.4); Chloride 95 mmol/L (98-107); Potassium 2.9 mmol/L (3.5-5.1); Sodium 135 mmol/L (136-145)
[2025-04-10 06:44] LABS: Alanine Aminotransferase 84 U/L (7-40); BUN/Creatinine Ratio 14.8 (10.0-20.0); Blood Urea Nitrogen 8 mg/dL (9-23); Total Protein 5.0 g/dL (5.7-8.2)
[2025-04-10] MEDS: prednisoLONE 15 MG/5 ML ORAL UD PO SCH (09:06)
[2025-04-10] MEDS: MAGNESIUM OXIDE 400 MG TAB PO ONE (10:59)
[2025-04-10] MEDS: MULTIPLE VITAMIN TAB PO ONE (10:59)
[2025-04-10] MEDS: FOLIC ACID 1 MG TAB PO ONE (10:59)
[2025-04-10] MEDS: THIAMINE HCL 100 MG TAB PO ONE (10:59)
--- NOTE | 2025-04-10 14:33 | DVHINCON2 ---
Date of service: Apr 10, [address] Galvan Reason for Consultation Severe jaundice alcoholism History of Present Illness This 50-year-old with a history of alcohol abuse and history of chronic liver disease is admitted with complaints of dizziness apparently he fainted and fell over the head and had a CAT scan done which was unremarkable patient has got history of alcohol as well as tobacco and marijuana abuse patient was told to have chronic liver disease in the past. No history of any hepatitis or other GI pathology in the past apparently he has been tested and was negative. He is extremely jaundiced and is also status post cholecystectomy Past Medical History History of chronic liver disease alcoholism as well as marijuana abuse hypertension Past Surgical History Gallbladder surgery Family History: FH: liver disease G8 FATHER, Onset:50's - 60 FHx: brain cancer G8 MOTHER, Onset:50s - 60 FHx: brain cancer G8 MOTHER, Onset:50s - 60 FHx: brain cancer G8 MOTHER, Onset:50 FHx: heart failure G8 FATHER, Onset:50 - 60 Family History Unremarkable Social History History of moderate heavy drinking as well as smoking marijuana Allergies: Coded Allergies: NO KNOWN ALLERGIES (Unverified , 10/31/23) Home Meds Active Scripts Levofloxacin Hemihydrate (LEVOFLOXACIN) 750 Mg Tab, 1 TAB PO DAILY for 10 Days, #10 TAB Prov:JORGITO ABAD DO 11/02/23 Reported Medications Gabapentin (Once-Daily) (Gabapentin) 300 Mg Tab, 300 MG PO TID, TAB 04/09/25 Current Medications Current Medications Medications (Trade) Dose Ordered Sig/Nicolás Route PRN Reason Start Time Stop Time Status Last Admin Prednisone 10 mg DAILY PO 04/10/25 10:00 04/10/25 09:06 Folic Acid 1 mg/ Multivitamins 10 ml/Magnesium Sulfate 8 meq/ Thiamine HCl 100 mg/Dextrose 1,013.2 ml @ 125.001 mls/hr DAILY@1800 INJ 04/09/25 18:00 04/10/25 10:17 DC 04/09/25 21:38 Folic Acid 1 mg DAILY PO 04/11/25 10:00 Multivitamins (Mvi Tab) 1 tab DAILY PO 04/11/25 10:00 Magnesium Oxide (Mag-Ox Tablet) 400 mg DAILY PO 04/11/25 10:00 Thiamine HCl 100 mg DAILY PO 04/11/25 10:00 Review of Systems Dizziness i Otherwise unremarkable Vital Signs Vital Signs Date Time Temp Pulse Resp B/P (MAP) Pulse Ox O2 Delivery O2 Flow Rate FiO2 04/10/25 09:00 97.7 93 19 103/70 (81) 97 97.7 04/10/25 08:07 Room Air* 0 21 Physical Exam Moderately built and nourished in no acute distress extremely jaundiced HEENT examination intense scleral icterus Lungs are clear Vascular unremarkable Abdomen is soft liver palpable nodular no evidence of any gross ascites no rigidity no guarding Bowel sounds normal Extremities no edema Labs/Diagnostic Data Labs Test 04/10/25 13:13 04/10/25 04:25 04/09/25 03:39 04/08/25 22:20 Range/Units Vancomycin Level Trough 17.5 H 5-10 ug/mL White Blood Count 4.5 4.4-10.8 10^3/uL Red Blood Count 2.48 L 4.5-5.90 10^6/uL Hemoglobin 9.9 L 13.5-17.5 g/dL Hematocrit 27.5 L 41.0-53.0 % Mean Corpuscular Volume 110.9 H 80.0-100.0 fL Mean Corpuscular Hemoglobin 40.0 H 28.0-32.0 pg Mean Corpuscular Hemoglobin Concent 36.1 H 32.0-36.0 g/dL Red Cell Distribution Width 16.8 H 11.8-14.3 % Platelet Count 113 L 140-450 10^3/uL Mean Platelet Volume 9.6 6.9-10.8 fL Neutrophils (%) (Auto) 69.7 37.0-80.0 % Lymphocytes (%) (Auto) 21.3 10.0-50.0 % Monocytes (%) (Auto) 7.7 0.0-12.0 % Eosinophils (%) (Auto) 0.8 0.0-7.0 % Basophils (%) (Auto) 0.5 0.0-2.0 % Neutrophils # (Auto) 3.1 1.6-8.6 10 ^3/uL Lymphocytes # (Auto) 1.0 0.4-5.4 10 ^3/uL Monocytes # (Auto) 0.3 0-1.3 10 ^3/uL Eosinophils # (Auto) 0 0-0.8 10 ^3/uL Basophils # (Auto) 0 0-0.2 10 ^3/uL Nucleated Red Blood Cells 0.1 % Sodium Level 135 L 136-145 mmol/L Potassium Level 2.9 L 3.5-5.1 mmol/L Chloride Level 95 L 98-107 mmol/L Carbon Dioxide Level 29 20-31 mmol/L Anion Gap 11 5-15 Blood Urea Nitrogen 8 L 9-23 mg/dL Creatinine 0.54 L 0.700-1.30 mg/dL Glomerular Filtration Rate Calc 121 >90 mL/min BUN/Creatinine Ratio 14.8 10.0-20.0 Serum Glucose 103 74-106 mg/dL Lactic Acid Level 1.5 0.4-2.0 mmol/L Calcium Level 8.5 L 8.7-10.4 mg/dL Magnesium Level 2.0 1.6-2.6 mg/dL Total Bilirubin 21.1 H 0.2-1.0 mg/dL Aspartate Amino Transferase (AST) 271 H 13-40 U/L Alanine Aminotransferase (ALT) 84 H 7-40 U/L Alkaline Phosphatase 254 H 46-116 U/L Total Protein 5.0 L 5.7-8.2 g/dL Albumin 2.6 L 3.2-4.8 g/dL Platelet Estimate Decreased Macrocytosis Moderate Target Cells Few Stomatocytes Moderate Urine Color Dark-yellow Yellow Urine Clarity Turbid H Clear Urine pH 6.0 5.0-9.0 Urine Specific [place] 1.006 1.001-1.035 Urine Protein Negative Negative Urine Ketones Trace Negative Urine Blood Negative Negative /uL Urine Nitrite Negative Negative Urine Bilirubin 2+ Negative Urine Urobilinogen Normal Negative mg/dL Urine Leukocyte Esterase Negative Negative /uL Urine RBC 1 0 - 3 /hpf Urine Microscopic WBC < 1 0-3 /HPF Urine Squamous Epithelial Cells None seen <5 /hpf Urine Bacteria Few H None Seen /hpf Urine Yeast (Budding) Occasional None Seen /hpf Urine Glucose Normal Normal mg/dL Test 04/08/25 20:19 04/08/25 13:50 Range/Units Direct Bilirubin 15.5 H <0.3 mg/dL Ammonia 24 11-32 umol/L Large Platelets Few Polychromasia Slight Poikilocytosis (manual) Moderate Anisocytosis (manual) Slight Prothrombin Time 17.5 H 9.3-11.8 sec Prothrombin Time INR 1.74 H 0.9-1.15 Activated Partial Thromboplast Time 41.0 H 24.5-34.5 SEC Plasma/Serum Blood Alcohol 255.1 H <10 mg/dL Microbiology Date/Time Source Procedure Growth Status 04/08/25 14:00 Blood Blood Culture - Preliminary NO GROWTH AFTER 48 HOURS OF INCUBATION. Resulted Assessment 50-year-old with a history of liver disease liver cirrhosis history of alcohol abuse no history of any hepatitis continuing to drink alcohol he was in rehab for some time and would got back again into drinking admitted with some dizziness and S in the ER has found to be jaundice he has bilirubin was 21.2 ALT AST alk-phos all high alcohol level was 255.1 lipase is not back hemoglobin is 11 platelet count is 150. Lactic acid level was high and patient is on antibiotic Clinical impression Alcoholic liver disease with cirrhosis with alcoholic hepatitis Possibility of other pathology can not be excluded E Plan/Recommendation Follow closely for encephalopathy or other complications specially with a history of gallbladder surgery and enzyme elevations we will recommend MRI MRCP also to ensure there is no choledocholithiasis Repeat the liver panel lipase and ammonia levels Overall prognosis guarded Consultation for alcohol counseling and rehab Plan discussed with: Patient MONICO DOZIER MD Apr 10, 2025 14:33
--- NOTE | 2025-04-10 17:01 | DVH ---
CLINICAL HISTORY: Liver abnormality. TECHNIQUE: Multi sequence multi planar MRI images of the abdomen were obtained without IV contrast. COMPARISON: CT dated 04/08/2025. FINDINGS: Marked hepatomegaly, with the liver measuring up to 21.1 cm in craniocaudal dimension at t he midclavicular line. There is also marked hepatic steatosis. There is [id number] perihepatic ascites and small volume ascites throughout the rest of the visualized portions of the abdomen. Gall bladder is surgically absent. No biliary ductal dilatation. The spleen and adrenal glands appear unre markable. There is [id number] peripancreatic edema and fluid, may be due to the ascites or acut e pancreatitis in the appropriate clinical setting. Very small T2 hyperintense lesion of the inferior pole of the right kidney, likely a small cyst, but not well characterized due to its small size and lack of postcontrast images. Nonspecific mildly distended small bowel loops. IMPRESSION: 1. Marked hepatomegaly and hepatic steatosis. 2. Peripancreatic edema and small amount of fluid. May be due to the ascites, however acute pancreati tis not excluded in the appropriate clinical setting. 3. Abdominal ascites as described above. 4. Additional findings as detailed above.
--- NOTE | 2025-04-10 17:14 | DVHPN2 ---
Subjective Patient is currently on banana bag feeling much better. Changes from previous H/P or p: No Changes Eyes: No Pain, No Vision change, No Conjunctivae inflammation, No Eyelid inflammation, No Other, No Redness ENT: No Ear pain, No Ear discharge, No Nose pain, No Nose discharge, No Nose congestion, No Mouth pain, No Mouth swelling, No Throat pain, No Throat swelling, No Other Cardiovascular: No Chest Pain, No Palpitations, No Orthopnea, No Paroxysmal Noc. Dyspnea, No Edema, No Lt Headedness, No Other Respiratory: No Cough, No Dry; Shortness of breath; No SOB with excertion, No Wheezing, No Hemoptysis, No Pleuritic Pain, No Sputum, No Other Gastrointestinal: No Nausea, No Vomiting, No Abdominal Pain, No Diarrhea, No Constipation, No Melena, No Hematochezia, No Other Genitourinary: No Dysuria, No Frequency, No Incontinence, No Hematuria, No Retention, No Other Musculoskeletal: No other, No neck pain, No shoulder pain, No arm pain, No back pain, No hand pain, No leg pain, No foot pain Skin: No Rash, No Lesions; Jaundice; No Bruising, No Other Objective Vitals Vital Signs Date Time Temp Pulse Resp B/P (MAP) Pulse Ox O2 Delivery O2 Flow Rate FiO2 04/10/25 13:00 97.8 87 19 105/78 (87) 97 97.8 04/10/25 08:07 Room Air* 0 21 Intake/Output Intake and Output 04/10/25 07:00 Intake Total 1270 ml Balance 1270 ml Intake Oral 820 ml IV Total 450 ml # Voids 1 # Bowel Movements 1 Exam HEENT pupils are reactive positive scleral icterus Neck is supple CV is S1-S2 regular rate and rhythm Respiratory diminished breath sounds bases GI positive bowel sounds Extremity no edema [employer]IDENT[employer] no motor deficit besides hand tremors. Medications Current Medications Medications Dose Ordered Sig/Nicolás Route Start Time Stop Time Status Last Admin Dose Admin Cefepime HCl 50 ml @ 12.5 mls/hr Q8H IV 04/08/25 16:00 04/10/25 16:12 12.5 MLS/HR Vancomycin HCl 0 ml @ 0 mls/hr UD IV 04/08/25 20:15 Ibuprofen 400 mg Q6HP PRN PO 04/08/25 20:15 Lactulose 30 ml BID PO 04/08/25 22:00 04/10/25 09:06 30 ML Acetaminophen/ Hydrocodone Bitart 1 tab Q4HP PRN PO 04/08/25 20:15 Ondansetron HCl 4 mg Q4HP PRN IV 04/08/25 20:15 Sodium Chloride 1,000 ml @ 75 mls/hr [id number] IV 04/08/25 20:15 04/10/25 11:20 75 MLS/HR Prednisone 10 mg DAILY PO 04/10/25 10:00 04/10/25 09:06 10 MG Nitroglycerin 0.4 mg Q5MINP PRN SL 04/09/25 00:45 Morphine Sulfate 2 mg Q30M PRN IV 04/09/25 00:45 Vancomycin HCl 150 ml @ 150 mls/hr Q8H IV 04/09/25 14:00 04/10/25 13:59 150 MLS/HR Folic Acid 1 mg DAILY PO 04/11/25 10:00 Multivitamins 1 tab DAILY PO 04/11/25 10:00 Magnesium Oxide 400 mg DAILY PO 04/11/25 10:00 Thiamine HCl 100 mg DAILY PO 04/11/25 10:00 Laboratory Results Laboratory Tests 04/10/25 04:25 Chemistry Test 04/10/25 04:25 Albumin 2.6 g/dL (3.2-4.8) L Calcium Level 8.5 mg/dL (8.7-10.4) L Magnesium Level 2.0 mg/dL (1.6-2.6) Total Protein 5.0 g/dL (5.7-8.2) L LFT Test 04/10/25 04:25 Alanine Aminotransferase (ALT) 84 U/L (7-40) H Alkaline Phosphatase 254 U/L (46-116) H Aspartate Amino Transferase (AST) 271 U/L (13-40) H Total Bilirubin 21.1 mg/dL (0.2-1.0) H Urinalysis Test 04/08/25 22:20 Urine Color Dark-yellow (Yellow) Urine Clarity Turbid (Clear) H Urine pH 6.0 (5.0-9.0) Urine Specific [place] 1.006 (1.001-1.035) Urine Protein Negative (Negative) Urine Ketones Trace (Negative) Urine Blood Negative /uL (Negative) Urine Nitrite Negative (Negative) Urine Bilirubin 2+ (Negative) Urine Urobilinogen Normal mg/dL (Negative) Urine Leukocyte Esterase Negative /uL (Negative) Urine RBC 1 /hpf (0 - 3) Urine Microscopic WBC < 1 /HPF (0-3) Urine Squamous Epithelial Cells None seen /hpf (<5) Urine Bacteria Few /hpf (None Seen) H Urine Yeast (Budding) Occasional /hpf (None Urine Glucose Normal mg/dL (Normal) Microbiology Microbiology Date/Time Source Procedure Growth Status 04/08/25 14:00 Blood Blood Culture - Preliminary NO GROWTH AFTER 48 HOURS OF INCUBATION. Resulted Assessment/Plan Assessment/Plan 50year-old male with a known history of liver cirrhosis secondary to chronic alcoholism initially presented to the hospital with generalized weakness found to have 1. Alcohol withdrawal syndrome 2. Chronic alcoholism 3. Transaminitis with the elevated bilirubin with jaundice 4. Coagulopathy secondary to liver cirrhosis 5. Pancytopenia secondary to liver disease 6. Lactic acidosis secondary to liver disease -banana bag, watch for alcohol withdrawal syndrome/delirium tremens GI consultation. Posterior services consultation for drug rehab resources. Plan discussed with: Patient My Orders Orders - JAM NUR MD Procedure Category Date Status Time Folic Acid Tablet PHA 04/11/25 In Process 10:00 Multiple Vitamin PHA 04/11/25 In Process Tablet (Mvi Tab) 10:00 Magnesium Oxide PHA 04/11/25 In Process Tablet (Mag-Ox Tablet) 10:00 Thiamine Tab PHA 04/11/25 In Process 10:00 Clarification Of ORDERS 04/10/25 Transmitted Order: 10:19 Pharmacy [facility] 04/10/25 In Process Clarification: 10:19 * [facility] CONS 04/10/25 Transmitted Consult Date of Service: Apr 10, 2025 Billing Provider: JAM NUR MD Common Visit Codes: [id number] INP/OBS CARE(MOD) JAM NUR MD Apr 10, 2025 17:14
[2025-04-11] VITALS (7 sets, daily range): BP systolic 102–121; BP diastolic 65–76; PULSE 71–87; RESP 16–18; TEMP 36.6; O2SAT 96–99
[2025-04-11 06:37] LABS: Hemoglobin 11.2 g/dL (13.5-17.5)
[2025-04-11 06:39] LABS: Hematocrit 32.0 % (41.0-53.0); Mean Corpuscular Hemoglobin 40.7 pg (28.0-32.0); Mean Corpuscular Volume 115.9 fL (80.0-100.0); Nucleated Red Blood Cells % 0.3 %
[2025-04-11 06:41] LABS: Anion Gap 12 (5-15); BUN/Creatinine Ratio 16.7 (10.0-20.0)
[2025-04-11 06:44] LABS: Alanine Aminotransferase 91 U/L (7-40); Albumin 2.9 g/dL (3.2-4.8); Alkaline Phosphatase 267 U/L (46-116); Bilirubin, Total 27.4 mg/dL (0.2-1.0); Blood Urea Nitrogen 9 mg/dL (9-23); Calcium 8.3 mg/dL (8.7-10.4); Carbon Dioxide 25 mmol/L (20-31); Chloride 96 mmol/L (98-107); Glucose 84 mg/dL (74-106); Lipase 143 U/L (12-53); Potassium 3.1 mmol/L (3.5-5.1); Sodium 133 mmol/L (136-145); Total Protein 5.5 g/dL (5.7-8.2)
[2025-04-11] MEDS: MAGNESIUM OXIDE 400 MG TAB PO SCH (08:40)
[2025-04-11] MEDS: THIAMINE HCL 100 MG TAB PO SCH (08:40)
[2025-04-11] MEDS: FOLIC ACID 1 MG TAB PO SCH (08:41)
[2025-04-11] MEDS: MULTIPLE VITAMIN TAB PO SCH (08:41)
[2025-04-11] MEDS ORDERED: LEVO500T91 PO (15:39)
--- NOTE | 2025-04-11 15:41 | DVHDS2 ---
Discharge Summary Date of Admission Apr 09, 2025 at 00:32 Date of Discharge: Apr 11, 2025 Labs/Diagnostic Data: Laboratory Results Test 04/11/25 05:03 04/10/25 13:13 04/10/25 04:25 04/09/25 03:39 White Blood Count 7.6 10^3/uL (4.4-10.8) Red Blood Count 2.76 10^6/uL (4.5-5.90) Hemoglobin 11.2 g/dL (13.5-17.5) Hematocrit 32.0 % (41.0-53.0) Mean Corpuscular Volume 115.9 fL (80.0-100.0) Mean Corpuscular Hemoglobin 40.7 pg (28.0-32.0) Mean Corpuscular Hemoglobin Concent 35.1 g/dL (32.0-36.0) Red Cell Distribution Width 17.0 % (11.8-14.3) Platelet Count 141 10^3/uL (140-450) Mean Platelet Volume 10.0 fL (6.9-10.8) Neutrophils (%) (Auto) 76.3 % (37.0-80.0) Lymphocytes (%) (Auto) 16.1 % (10.0-50.0) Monocytes (%) (Auto) 6.7 % (0.0-12.0) Eosinophils (%) (Auto) 0.6 % (0.0-7.0) Basophils (%) (Auto) 0.3 % (0.0-2.0) Neutrophils # (Auto) 5.8 10 ^3/uL (1.6-8.6) Lymphocytes # (Auto) 1.2 10 ^3/uL (0.4-5.4) Monocytes # (Auto) 0.5 10 ^3/uL (0-1.3) Eosinophils # (Auto) 0 10 ^3/uL (0-0.8) Basophils # (Auto) 0 10 ^3/uL (0-0.2) Nucleated Red Blood Cells 0.3 % Sodium Level 133 mmol/L (136-145) Potassium Level 3.1 mmol/L (3.5-5.1) Chloride Level 96 mmol/L (98-107) Carbon Dioxide Level 25 mmol/L (20-31) Anion Gap 12 (5-15) Blood Urea Nitrogen 9 mg/dL (9-23) Creatinine 0.54 mg/dL (0.700-1.30) Glomerular Filtration Rate Calc 121 mL/min (>90) BUN/Creatinine Ratio 16.7 (10.0-20.0) Serum Glucose 84 mg/dL (74-106) Calcium Level 8.3 mg/dL (8.7-10.4) Total Bilirubin 27.4 mg/dL (0.2-1.0) Aspartate Amino Transferase (AST) 251 U/L (13-40) Alanine Aminotransferase (ALT) 91 U/L (7-40) Alkaline Phosphatase 267 U/L (46-116) Ammonia 56 umol/L (11-32) Total Protein 5.5 g/dL (5.7-8.2) Albumin 2.9 g/dL (3.2-4.8) Lipase 143 U/L (12-53) Vancomycin Level Trough 17.5 ug/mL (5-10) Lactic Acid Level 1.5 mmol/L (0.4-2.0) Magnesium Level 2.0 mg/dL (1.6-2.6) Platelet Estimate Decreased Macrocytosis Moderate Target Cells Few Stomatocytes Moderate Test 04/08/25 22:20 04/08/25 20:19 04/08/25 13:50 Urine Color Dark-yellow (Yellow) Urine Clarity Turbid (Clear) Urine pH 6.0 (5.0-9.0) Urine Specific [place] 1.006 (1.001-1.035) Urine Protein Negative (Negative) Urine Ketones Trace (Negative) Urine Blood Negative /uL (Negative) Urine Nitrite Negative (Negative) Urine Bilirubin 2+ (Negative) Urine Urobilinogen Normal mg/dL (Negative) Urine Leukocyte Esterase Negative /uL (Negative) Urine RBC 1 /hpf (0 - 3) Urine Microscopic WBC < 1 /HPF (0-3) Urine Squamous Epithelial Cells None seen /hpf (<5) Urine Bacteria Few /hpf (None Seen) Urine Yeast (Budding) Occasional /hpf (None Urine Glucose Normal mg/dL (Normal) Direct Bilirubin 15.5 mg/dL (<0.3) Large Platelets Few Polychromasia Slight Poikilocytosis (manual) Moderate Anisocytosis (manual) Slight Prothrombin Time 17.5 sec (9.3-11.8) Prothrombin Time INR 1.74 (0.9-1.15) Activated Partial Thromboplast Time 41.0 SEC (24.5-34.5) Plasma/Serum Blood Alcohol 255.1 mg/dL (<10) Other Laboratory Tests 04/11/25 05:03 Brief Hx & Hospital Course: 50 yo M with liver cirrhosis and chronic alcoholism presented to the hospital with gen weakness, alcohol withdrawal. patient seen by GI, MRCP done with ascites. received banana bag with improvement. not withdrawing currently. seen by ss team for resources, educated on importance of abstinance. stable to DC Condition at Discharge: Good Final Diagnosis/Problems List 1. Alcohol withdrawal syndrome 2. Chronic alcoholism 3. Transaminitis with the elevated bilirubin with jaundice 4. Coagulopathy secondary to liver cirrhosis 5. Pancytopenia secondary to liver disease 6. Lactic acidosis secondary to liver disease Discharge Disposition: Home Discharge Instruct/Medications Diet: Consistent carbohydrate, Cardiac 2g Na,low cholest Activity: No Restrictions, As Tolerated Follow Up/Referral: dc clinic Scheduled Gabapentin (Once-Daily) (Gabapentin), 300 MG PO TID, (Reported) Levofloxacin Hemihydrate (Levofloxacin), 1 TAB PO DAILY Discontinued Medications Levofloxacin Hemihydrate (Levofloxacin), 1 TAB PO DAILY Discharge Statement: "Patient was advised to return to the ER or call 911 if any headaches, dizziness, shortness of breath, chest pain, abdominal pain, bleeding, fevers, or worsening of medical condition. Patient was counseled about treatment plan, medications, possible side effects, patientverbalized understanding. All questions were answered to the best of my ability. This discharge took greater then 30 minutes in planning, reviewing documentation, counseling the patient, and discussing with other team members." ASSESSMENT ASSESSMENT Assessment alcohol withdrawal cirrhosis Date of Service: Apr 11, 2025 Billing Provider: GABY CUADRA MD Common Visit Codes: [id number]-FDN/OBS DISCH DAY >30min GABY CUADRA MD Apr 11, 2025 15:41
[2025-04-11] MEDS ORDERED: METH4PAK PO (17:17)
[2025-04-11] MEDS ORDERED: URSO300C2 PO (17:17)
--- NOTE | 2025-04-11 23:11 | DVHPN2 ---
Progress Note - Dictate Date Seen: Apr 11, 2025 (Late entry Patient seen at 4:00 p.m.) Medical Necessity Reason Pt with a Central, PICC or Fol: No Subjective No new complaints, patient is sitting at the edge of the bed He has no nausea vomiting abdominal pain or diarrhea or GI bleeding Patient continues to have elevated liver enzymes and worsening jaundice vital signs Vital Sign Date Time Temp Pulse Resp B/P (MAP) Pulse Ox O2 Delivery O2 Flow Rate FiO2 04/11/25 15:57 36.6 04/11/25 13:00 74 16 102/65 (77) 96 04/11/25 07:55 Room Air* 0 21 Total Intake and Output 04/10/25 04/10/25 04/11/25 15:00 23:00 07:00 Intake Total 200 ml 2100 ml 600 ml Output Total 350 ml Balance 200 ml 1750 ml 600 ml objective Moderately built and nourished in no acute distress extremely jaundiced HEENT examination intense scleral icterus Lungs are clear Vascular unremarkable Abdomen is soft liver palpable nodular no evidence of any gross ascites no rigidity no guarding Bowel sounds normal Extremities no edema laboratory and microbiology Laboratory Tests 04/11/25 05:03 Test 04/11/25 05:03 Range/Units Serum Glucose 84 74-106 mg/dL Problems(with codes): (1) Elevated liver enzymes (2) Hyperbilirubinemia (3) Elevated lactic acid level (4) Liver cirrhosis (5) Coagulopathy (6) Generalized weakness (7) Jaundice Prognosis Plan Discharge planning is in progress I have recommended patient be discharged on Medrol Dosepak Ursodiol 300 mg p.o. twice a day Patient had severe alcoholic steatohepatitis [facility] discrimination function is 57.3 points consistent of poor prognosis Outpatient follow up with PCP in one week and 1-2 weeks with GI Services to continue to monitor his liver condition Patient has been counseled against alcohol marijuana use drug abuse Plan discussed with: Patient, Other (Nurse and DR choi) SHAWNEE MCKEE MD Apr 11, 2025 23:11
== END 2025-04-11 17:18 | disposition home or self-care (01) | DRG 872 ==
LOC: ER 12:48 → OVERFLOW 04-09 00:32 → TELE-WESTW 04-09 15:54
PROVIDERS: ADMIT Student in an Organized Health Care Education/Training Program; ATTEND Student in an Organized Health Care Education/Training Program
DX: A41.9 Sepsis, unspecified organism (principal); D61.818 Other pancytopenia; E87.20 Acidosis, unspecified; F10.239 Alcohol dependence with withdrawal, unspecified; D68.4 Acquired coagulation factor deficiency; K70.31 Alcoholic cirrhosis of liver with ascites; K70.11 Alcoholic hepatitis with ascites; F12.10 Cannabis abuse, uncomplicated; F17.210 Nicotine dependence, cigarettes, uncomplicated; I10 Essential (primary) hypertension; Z90.49 Acquired absence of other specified parts of digestive tract; Z82.49 Family history of ischemic heart disease and other diseases of the circulatory system; Z80.8 Family history of malignant neoplasm of other organs or systems
CPT/HCPCS: 36415; 70450; 71045; 74176; 74181; 76705; 80053; 80202; 80320; 81001; 82140; 82248; 83605; 83690; 83735; 85025; 85610; 85730; 87040; 93005; 99291; 99292; G0378; J7510

== ENCOUNTER 2025-05-18 10:41 | Outpatient (CLI) | payer BC ==
[~2025-05-18 10:41] MED LIST changes: +GABA300T4 PO; +LEVO500T91 PO; -LEVO750T40 PO; +METH4PAK PO; +URSO300C2 PO
[2025-05-18 11:36] LABS: Alanine Aminotransferase 35 U/L (7-40); Anion Gap 6 (5-15); BUN/Creatinine Ratio 10.3 (10.0-20.0); Carbon Dioxide 26 mmol/L (20-31); Chloride 104 mmol/L (98-107); Magnesium 1.9 mg/dL (1.6-2.6); Potassium 3.8 mmol/L (3.5-5.1); Sodium 136 mmol/L (136-145); Total Protein 6.0 g/dL (5.7-8.2); Uric Acid 3.2 mg/dL (3.7-9.2)
[2025-05-18 11:37] LABS: Albumin 2.9 g/dL (3.2-4.8); Alkaline Phosphatase 128 U/L (46-116); Bilirubin, Total 5.0 mg/dL (0.2-1.0); Blood Urea Nitrogen 7 mg/dL (9-23); Calcium 8.4 mg/dL (8.7-10.4)
[2025-05-18 11:40] LABS: Hematocrit 37.4 % (41.0-53.0); Mean Corpuscular Volume 107.8 fL (80.0-100.0)
[2025-05-18 11:42] LABS: Hemoglobin 13.1 g/dL (13.5-17.5); Mean Corpuscular Hemoglobin 37.8 pg (28.0-32.0); Nucleated Red Blood Cells % 0.1 %
[2025-05-18 11:48] LABS: INR 1.14 (0.9-1.15); Partial Thromboplastin Time 31.1 SEC (24.5-34.5); Prothrombin Time 11.9 sec (9.3-11.8)
[2025-05-18 12:09] LABS: Prostate Specific Antigen 0.43 ng/mL (0.0-4.0)
[2025-05-18 12:12] LABS: Glucose 94 mg/dL (74-106)
[2025-05-18 12:14] LABS: Free T3 2.51 pg/mL (2.3-4.2)
[2025-05-18 12:27] LABS: Triglycerides 112 mg/dL (< 150)
[2025-05-18 12:29] LABS: Cholesterol 168 mg/dL (< 200)
[2025-05-18 12:31] LABS: HDL Cholesterol 31 mg/dL (40-59)
== END 2025-05-18 17:00 | disposition home or self-care (01) ==
LOC: LAB 10:41
PROVIDERS: ATTEND Internal Medicine Gastroenterology
DX: K74.60 Unspecified cirrhosis of liver (principal); R18.8 Other ascites; R94.5 Abnormal results of liver function studies
CPT/HCPCS: 36415; 80053; 80061; 80198; 80320; 82140; 82306; 82607; 82746; 83036; 83735; 84153; 84481; 84550; 85025; 85610; 85730

== ENCOUNTER 2025-05-24 13:06 | Inpatient (IN) | payer BC ==
[~2025-05-24] VITALS: Ht 182.9 cm; Wt 87.0 kg
--- NOTE | 2025-05-24 13:30 | ED.PDOC ---
Musculoskeletal HPI Comments 50 y/o M, with PMHX of alcohol abuse presents to the ED for CC of lower extremity swelling. Patient states, he has been experiencing increased bilateral leg swelling following starting Lasix x1week ago. Patient states, that he has been experiencing associated symptoms of abdominal pain with distension. Patient endorses, being sent by PCP for an abdominal paracenteses to remove ascites. Patient denies chest pain, shortness of breath, fatigue, weakness, nausea, or vomiting. No other symptoms or modifying factors are present at this time. Chief Complaint: Lower Extremity Time Seen by MD: 13:35 Primary Care Provider: CARLY Reviewed Notes: Nurses Notes, Medications, Allergies Allergies: Coded Allergies: NO KNOWN ALLERGIES (Unverified , 10/31/23) Home Meds Active Scripts Methylprednisolone (Medrol Dosepak) 4 Mg Timothy, 4 MG PO UD, #21 TAB UAD Prov:JAM NUR MD 04/11/25 Ursodiol (Ursodiol) 300 Mg Cap, 300 MG PO BID, #28 CAP Prov:JAM NUR MD 04/11/25 Levofloxacin Hemihydrate (LEVOFLOXACIN) 500 Mg Tab, 1 TAB PO DAILY for 5 Days, #5 TAB Prov:GABY CUADRA MD 04/11/25 Reported Medications Gabapentin (Once-Daily) (Gabapentin) 300 Mg Tab, 300 MG PO TID, TAB 04/09/25 Information Source: Patient Mode of Arrival: Ambulatory Location: Bilateral Extremity Location: Leg Timing: Weeks Prehospital treatment: None Severity: Moderate Able to Move Extremity: Yes Bear Weight: Fully Pain: Moderate Mechanism: Spontaneous Circumstances: Spontaneous Onset of Symptoms: Spontaneous Symptoms: Swelling Last Tetanus: Unknown Associated signs and symptoms: Swelling Past Medical History PAST MEDICAL HISTORY: HTN Surgical History: Cholecystectomy Family History Family History: Family hx of Cancer Social History Smoker: Cigarettes Alcohol: Heavy Drugs: Marijuana Lives In: Home Constitutional: denies: chills, diaphoresis, fatigue, fever, malaise, sweats, weakness, others EENTM: denies: blurred vision, double vision, ear bleeding, ear discharge, ear drainage, ear pain, ear ringing, eye pain, eye redness, hearing loss, mouth pain, mouth swelling, nasal discharge, nose bleeding, nose congestion, nose pineda n, photophobia, tearing, throat pain, throat swelling, voice changes, others Respiratory: denies: cough, hemoptysis, orthopnea, SOB at rest, shortness of breath, SOB with excertion, stridor, wheezing, others Cardiovascular: denies: chest pain, dizzy spells, diaphoresis, Dyspnea on exertion, edema, irregular heart beat, left arm pain, lightheadedness, palpitations, PND, syncope, others Gastrointestinal: reports: abdomen distended, abdominal pain; denies: blood streaked bowels, constipated, diarrhea, dysphagia, difficulty swallowing, hematemesis, melena, nausea, poor appetite, poor fluid intake, rectal bleeding, rectal pain, vomiting, others Genitourinary: denies: burning, dysuria, flank pain, frequency, hematuria, incontinence, penile discharge, penile sore, pain, testicle pain, testicle swelling, urgency, others Neurological: denies: dizziness, fainting, headache, left sided numbness, left sided weakness, numbness, paresthesia, pre-existing deficit, right sided numbness, right sided weakness, seizure, speech problems, tingling, tremors, weakness, others Musculoskeletal: reports: others (bilateral leg swelling); denies: back pain, gout, joint pain, joint swelling, muscle pain, muscle stiffness, neck pain Integumetry: denies: bruises, change in color, change in hair/nails, dryness, laceration, lesions, lumps, rash, wounds, others Allergic/Immunocompromised: denies: Difficulty Healing, Frequent Infections, Hives, Itching, others Hematologic/Lymphatic: denies: anemia, blood clots, easy bleeding, easy bruising, swollen glands, others Endocrine: denies: excessive hunger, excessive sweating, excessive thirst, excessive urination, flushing, intolerance to cold, intolerance to heat, unexplained weight gain, unexplained weight loss, others Psychiatric: denies: anxiety, bipolar disorder, depression, hopeless, panic disorder, schizophrenia, sleepless, suicidal, others All Other Systems: Reviewed and Negative Physical Exam General Appearance: Moderate Distress HEENT: Scleral Icterus (L), Scleral Icterus (R) Neck: Full Range of Motion, Non-Tender, Normal, Normal Inspection Respiratory: Chest Non-Tender, Lungs Clear, No Accessory Muscle Use, No Respiratory Distress, Normal Breath Sounds Cardiovascular: No Edema, No JVD, No Murmur, No Gallop, Normal Peripheral Pulses, Regular Rate/Rhythm Breast Exam: Deferred Gastrointestinal: Distended Genitalia: Deferred Pelvic: Deferred Rectal: Deferred Extremities: Swelling (Bilateral lower extremity) Musculoskeletal : Apperance: Normal Neurologic: Alert, No Motor Deficits, No Sensory Deficits Cerebellar Function: NOT DONE Reflexes: NOT DONE Skin: Jaundice Peripheral Pulses: 3+ Radial (R), 3+ Radial (L) Lymphatic: No Adenopathy Was a procedure done? Was a procedure done?: No Differential Diagnosis EXT Differential Diagnosis: CHF, Other (pancreatitis) X-Ray, Labs, Meds, VS Vital Signs Date Time Temp Pulse Resp B/P (MAP) Pulse Ox O2 Delivery O2 Flow Rate FiO2 05/24/25 16:07 137/71 05/24/25 13:08 98.7 86 16 140/71 95 98.7 Lab Test 05/24/25 14:37 Range/Units White Blood Count 5.4 4.4-10.8 10^3/uL Red Blood Count 3.67 L 4.5-5.90 10^6/uL Hemoglobin 13.3 L 13.5-17.5 g/dL Hematocrit 38.7 L 41.0-53.0 % Mean Corpuscular Volume 105.6 H 80.0-100.0 fL Mean Corpuscular Hemoglobin 36.3 H 28.0-32.0 pg Mean Corpuscular Hemoglobin Concent 34.3 32.0-36.0 g/dL Red Cell Distribution Width 14.2 11.8-14.3 % Platelet Count 213 140-450 10^3/uL Mean Platelet Volume 7.9 6.9-10.8 fL Neutrophils (%) (Auto) 64.8 37.0-80.0 % Lymphocytes (%) (Auto) 24.5 10.0-50.0 % Monocytes (%) (Auto) 7.5 0.0-12.0 % Eosinophils (%) (Auto) 2.2 0.0-7.0 % Basophils (%) (Auto) 1.0 0.0-2.0 % Neutrophils # (Auto) 3.5 1.6-8.6 10 ^3/uL Lymphocytes # (Auto) 1.3 0.4-5.4 10 ^3/uL Monocytes # (Auto) 0.4 0-1.3 10 ^3/uL Eosinophils # (Auto) 0.1 0-0.8 10 ^3/uL Basophils # (Auto) 0.1 0-0.2 10 ^3/uL Nucleated Red Blood Cells 0.1 % Prothrombin Time 11.4 9.3-11.8 sec Prothrombin Time INR 1.08 0.9-1.15 Activated Partial Thromboplast Time 28.7 24.5-34.5 SEC Sodium Level 139 136-145 mmol/L Potassium Level 3.1 L 3.5-5.1 mmol/L Chloride Level 102 98-107 mmol/L Carbon Dioxide Level 29 20-31 mmol/L Anion Gap 8 5-15 Blood Urea Nitrogen 5 L 9-23 mg/dL Creatinine 0.66 L 0.700-1.30 mg/dL Glomerular Filtration Rate Calc 114 >90 mL/min BUN/Creatinine Ratio 7.6 L 10.0-20.0 Serum Glucose 90 74-106 mg/dL Calcium Level 8.6 L 8.7-10.4 mg/dL Total Bilirubin 4.2 H 0.2-1.0 mg/dL Aspartate Amino Transferase (AST) 48 H 13-40 U/L Alanine Aminotransferase (ALT) 26 7-40 U/L Alkaline Phosphatase 120 H 46-116 U/L Total Protein 6.6 5.7-8.2 g/dL Albumin 3.1 L 3.2-4.8 g/dL Current Medications Medications (Trade) Dose Ordered Sig/Nicolás Route Start Time Stop Time Status Last Admin Furosemide (Lasix Injection) 40 mg ONCE ONCE IV 05/24/25 14:30 05/24/25 14:31 DC 05/24/25 16:07 Patient alert. Liver disease. Bilateral lower extremity swelling. Vitals stable. Possibly need paracentesis. Radiology consultation. Counseled patient on effects of drinking for 15 minutes. Was given Lasix. Explained to the family. Continue monitoring. [address] [address] Ph: [phone] DIAGNOSTIC IMAGING Diagnostic Imaging Report : [id number] Signed PATIENT: ELIZA COLON ACCT: [id number] UNIT: [id number] : 1975 LOC: ER ROOM / BED: / AGE / SEX: 50 / M ADM STATUS: REG ER SERVICE [id number] ORDERING PHYSICIAN: JODY NOEL MD PROCEDURE(s): ABDL - ABDOMEN LIMITED REASON: FLUID CHECK FOR POSSIBLE PARACENTESIS ORDER NUMBER(s): [id number], ACCESSION NUMBER(s): [id number] Technique: Real-time ultrasound imaging of the abdomen was performed with grayscale imaging. Indication: FLUID CHECK FOR POSSIBLE PARACENTESIS Comparison: None Findings: Moderate to large volume of ascites fluid Impression: As above ATED BY: LLUVIA COTE MD DICTATED DATE/TIME: 05/24/25 152 SIGNED BY: LLUVIA COTE MD SIGNED DATE/TIME: 05/24/25 152 CC: Time of 1ST Reevaluation: 14:05 Reevaluation 1ST: Unchanged Patient Education/Counseling: Diagnosis, Treatment Family Education/Counseling: Diagnosis, Treatment Departure 1 Departure Time of Disposition: 14:23 Impression: Primary Impression: Liver cirrhosis Qualified Codes: K70.31 - Alcoholic cirrhosis of liver with ascites Disposition: ADMITTED INPATIENT Admit to: Med Surg Condition: Guarded Critical Care Note Critical Care Time?: No Stability Stability form required: No Heart Score Heart Score: Heart Score Response (Comments) Value History N/A 0 EKG N/A 0 Age N/A 0 Risk Factors N/A 0 Troponin N/A 0 Total 0 I personally scribed for NICK WHARTON MD ([email or web address]) on 05/24/25 at 13:30. Electronically submitted by Laurie Scott ([email or web address]). I personally scribed for NICK WHARTON MD ([email or web address]) on 05/24/25 at 14:12. Electronically submitted by Laurie Scott ([email or web address]). I personally scribed for NICK WHARTON MD ([email or web address]) on 05/24/25 at 15:43. Electronically submitted by Laurie Scott ([email or web address]). NICK WHARTON MD May 24, 2025 13:30
[2025-05-24 14:54] LABS: Hematocrit 38.7 % (41.0-53.0); Hemoglobin 13.3 g/dL (13.5-17.5); Mean Corpuscular Hemoglobin 36.3 pg (28.0-32.0); Mean Corpuscular Volume 105.6 fL (80.0-100.0); Nucleated Red Blood Cells % 0.1 %
[2025-05-24 15:10] LABS: Alanine Aminotransferase 26 U/L (7-40); Anion Gap 8 (5-15); BUN/Creatinine Ratio 7.6 (10.0-20.0); Carbon Dioxide 29 mmol/L (20-31); Chloride 102 mmol/L (98-107); Glucose 90 mg/dL (74-106); INR 1.08 (0.9-1.15); Partial Thromboplastin Time 28.7 SEC (24.5-34.5); Prothrombin Time 11.4 sec (9.3-11.8); Sodium 139 mmol/L (136-145); Total Protein 6.6 g/dL (5.7-8.2)
[2025-05-24 15:11] LABS: Albumin 3.1 g/dL (3.2-4.8); Alkaline Phosphatase 120 U/L (46-116); Bilirubin, Total 4.2 mg/dL (0.2-1.0); Blood Urea Nitrogen 5 mg/dL (9-23); Calcium 8.6 mg/dL (8.7-10.4); Potassium 3.1 mmol/L (3.5-5.1)
--- NOTE | 2025-05-24 15:25 | DVH ---
Technique: Real-time ultrasound imaging of the abdomen was performed with grayscale imaging. Indication: FLUID CHECK FOR POSSIBLE PARACENTESIS Comparison: None Findings: Moderate to large volume of ascites fluid Impression: As above
[2025-05-24] MEDS: FUROSEMIDE 40 MG/4 ML VIAL IV ONE (16:07)
[2025-05-24 18:23] VITALS: PULSE 81; RESP 14; O2SAT 98
[2025-05-24] MEDS ORDERED: ONDANSETRON HCL 4 MG/2 ML VIAL IV PRN (19:45)
[2025-05-24] MEDS: URSODIOL 300 MG CAP PO SCH (22:00)
[2025-05-24 23:16] VITALS: BP 140/85; PULSE 77; RESP 18; TEMP 97.6; TEMP 97.8; O2SAT 97; O2SAT 98
[2025-05-25] MEDS ORDERED: FURO40TA4 PO (00:07)
[2025-05-25] MEDS ORDERED: SPIR50TA5 PO (00:07)
[2025-05-25] MEDS ORDERED: LACT10SO3 PO (00:07)
[2025-05-25] MEDS ORDERED: FAMO40TA7 PO (00:07)
[2025-05-25 01:00] VITALS: BP 136/77; PULSE 74; RESP 18; TEMP 97.8; O2SAT 97
--- NOTE | 2025-05-25 04:29 | DVHHP2 ---
History of Present Illness Reason for Visit: Abdominal distention History of Present Illness 50-year-old male with a history of liver cirrhosis secondary to alcohol abuse presents for evaluation of abdominal distention. Patient reports worsening abdominal distention over the past one-week. He was advised by his primary care provider to present for further evaluation and possible paracentesis. Denies fever or chills. No other acute complaints reported. Past Medical History Hypertension, liver cirrhosis Past Surgical History Cholecystectomy Family History Cancer Smoke: <1 pack per day ALCOHOL: heavy Drugs: None, Marijuana Lives: with Family Review of Systems Review of Systems Review of systems are currently negative otherwise addressed in HPI. Allergies: Coded Allergies: NO KNOWN ALLERGIES (Unverified , 10/31/23) Medications Current Medications Medications Dose Ordered Sig/Nicolás Route Start Time Stop Time Status Last Admin Dose Admin Furosemide 40 mg DAILY PO 05/25/25 10:00 Spironolactone 50 mg DAILY PO 05/25/25 10:00 Ursodiol 300 mg BID PO 05/24/25 22:00 Folic Acid 1 mg DAILY PO 05/25/25 10:00 Thiamine HCl 100 mg DAILY PO 05/25/25 10:00 Ondansetron HCl 4 mg Q4HP PRN IV 05/24/25 19:45 Exam Vital Signs Vital Signs Date Time Temp Pulse Resp B/P (MAP) Pulse Ox O2 Delivery O2 Flow Rate FiO2 05/25/25 01:00 97.8 74 18 136/77 (96) 97 97.8 05/24/25 23:16 Room Air* 0 21 Exam Gen: 50-year-old male in mild distress Skin: Warm, dry, normal color and texture, no rash. HEENT: Normocephalic atraumatic, mucous membranes moist and pink. Neck: Cervical and supraclavicular nodes normal without enlargement, trachea is midline, thyroid gland is normal without masses. Pulmonary: Clear to auscultation and percussion bilaterally. Cardiac: Regular rate and rhythm. No murmur Abdomen: Soft, nontender, distended with ascites, bowel sounds present all 4 quadrants, no guarding, no rigidity, no organomegaly. Extremities: No cyanosis, clubbing, no edema Neuro: Cranial nerves II through XII grossly intact, normal affect and speech, no focal motor deficits. Labs/Xrays ORDERING PHYSICIAN: JODY NOEL MD PROCEDURE(s): ABDL - ABDOMEN LIMITED REASON: FLUID CHECK FOR POSSIBLE PARACENTESIS ORDER NUMBER(s): [id number], ACCESSION NUMBER(s): [id number] Technique: Real-time ultrasound imaging of the abdomen was performed with grayscale imaging. Indication: FLUID CHECK FOR POSSIBLE PARACENTESIS Comparison: None Findings: Moderate to large volume of ascites fluid Impression: As above Labs Test 05/24/25 14:37 Range/Units White Blood Count 5.4 4.4-10.8 10^3/uL Red Blood Count 3.67 L 4.5-5.90 10^6/uL Hemoglobin 13.3 L 13.5-17.5 g/dL Hematocrit 38.7 L 41.0-53.0 % Mean Corpuscular Volume 105.6 H 80.0-100.0 fL Mean Corpuscular Hemoglobin 36.3 H 28.0-32.0 pg Mean Corpuscular Hemoglobin Concent 34.3 32.0-36.0 g/dL Red Cell Distribution Width 14.2 11.8-14.3 % Platelet Count 213 140-450 10^3/uL Mean Platelet Volume 7.9 6.9-10.8 fL Neutrophils (%) (Auto) 64.8 37.0-80.0 % Lymphocytes (%) (Auto) 24.5 10.0-50.0 % Monocytes (%) (Auto) 7.5 0.0-12.0 % Eosinophils (%) (Auto) 2.2 0.0-7.0 % Basophils (%) (Auto) 1.0 0.0-2.0 % Neutrophils # (Auto) 3.5 1.6-8.6 10 ^3/uL Lymphocytes # (Auto) 1.3 0.4-5.4 10 ^3/uL Monocytes # (Auto) 0.4 0-1.3 10 ^3/uL Eosinophils # (Auto) 0.1 0-0.8 10 ^3/uL Basophils # (Auto) 0.1 0-0.2 10 ^3/uL Nucleated Red Blood Cells 0.1 % Prothrombin Time 11.4 9.3-11.8 sec Prothrombin Time INR 1.08 0.9-1.15 Activated Partial Thromboplast Time 28.7 24.5-34.5 SEC Sodium Level 139 136-145 mmol/L Potassium Level 3.1 L 3.5-5.1 mmol/L Chloride Level 102 98-107 mmol/L Carbon Dioxide Level 29 20-31 mmol/L Anion Gap 8 5-15 Blood Urea Nitrogen 5 L 9-23 mg/dL Creatinine 0.66 L 0.700-1.30 mg/dL Glomerular Filtration Rate Calc 114 >90 mL/min BUN/Creatinine Ratio 7.6 L 10.0-20.0 Serum Glucose 90 74-106 mg/dL Calcium Level 8.6 L 8.7-10.4 mg/dL Total Bilirubin 4.2 H 0.2-1.0 mg/dL Aspartate Amino Transferase (AST) 48 H 13-40 U/L Alanine Aminotransferase (ALT) 26 7-40 U/L Alkaline Phosphatase 120 H 46-116 U/L B-Type Natriuretic Peptide 107.60 0-100 pg/mL Total Protein 6.6 5.7-8.2 g/dL Albumin 3.1 L 3.2-4.8 g/dL SEPSIS Sepsis Screen Date sepsis recognized/suspect: May 24, 2025 Time Sepsis recognized/suspect: 1311 Recent Procedure: No On Antibiotic Therapy: No Respiratory Rate >20: No Heart Rate >90: No Temp<36 C (96.8 F) or >38.3 C: No SBP <90 or MAP <65 mmHG: No New Acute Mental Status Change: No Is the patient on CPAP, BIPAP,: No Vital Signs Date Time Temp Pulse Resp B/P (MAP) Pulse Ox O2 Delivery O2 Flow Rate FiO2 05/25/25 01:00 97.8 74 18 136/77 (96) 97 97.8 05/24/25 23:16 97.6 77 18 140/85 (103) 98 97.6 05/24/25 23:16 97.8 77 18 140/85 (103) 97 97.8 05/24/25 23:16 77 18 97 Room Air* 0 21 05/24/25 21:32 98.1 92 16 139/89 (106) 96 98.1 Assessment/Plan Assessment/Plan Assessment Abdominal distention with ascites Transaminitis Pancytopenia secondary to liver cirrhosis Plan Admit the patient to [facility] to the hospitalist Radiology consultation Resume home medications Continue treatment per orders. Plan discussed with: Patient My Orders Orders - HERI PEÑA Procedure Category Date Status Time Admit ADMIT 05/24/25 Transmitted 19:08 Hepatic Diet DIET 05/25/25 Transmitted (50gmpro,2gmna) Breakfast Furosemide Tablet PHA 05/25/25 In Process (Lasix Tablet) 10:00 Spironolactone PHA 05/25/25 In Process (Aldactone) 10:00 Ursodiol (Actigall) PHA 05/24/25 In Process 22:00 Folic Acid Tablet PHA 05/25/25 In Process 10:00 Thiamine Tab PHA 05/25/25 In Process 10:00 Ondansetron Hcl PHA 05/24/25 In Process (Zofran) 19:45 Complete Blood Count LAB 05/25/25 Logged 04:00 Comprehensive LAB 05/25/25 Logged Metabolic Panel 04:00 Condition: Stable BRENDA 05/24/25 In Process 19:44 Bedrest With Bathroom BRENDA 05/24/25 In Process Privileg 19:44 Date of Service: May 24, 2025 Billing Provider: HERI PEÑA Common Visit Codes: [id number] INP/OBS CARE (MOD) HERI PEÑA May 25, 2025 04:29
[2025-05-25 05:00] VITALS: BP 134/85; PULSE 78; RESP 18; TEMP 98.9; O2SAT 96
[2025-05-25 09:31] VITALS: BP 139/79; PULSE 86; RESP 18; TEMP 97.5; O2SAT 97
[2025-05-25] MEDS ORDERED: SPIRONOLACTONE 25 MG TAB PO SCH (10:00)
[2025-05-25 10:03] LABS: Hematocrit 34.0 % (41.0-53.0); Hemoglobin 11.6 g/dL (13.5-17.5); Mean Corpuscular Hemoglobin 36.4 pg (28.0-32.0); Mean Corpuscular Volume 106.6 fL (80.0-100.0); Nucleated Red Blood Cells % 0.1 %
[2025-05-25] MEDS: THIAMINE HCL 100 MG TAB PO SCH (10:03)
[2025-05-25] MEDS: FOLIC ACID 1 MG TAB PO SCH (10:04)
[2025-05-25] MEDS: SPIRONOLACTONE 25 MG TAB PO SCH (10:04)
[2025-05-25] MEDS: FUROSEMIDE 40 MG TAB PO SCH (10:06)
[2025-05-25 10:17] LABS: Alanine Aminotransferase 21 U/L (7-40); Alkaline Phosphatase 96 U/L (46-116); Anion Gap 9 (5-15); Carbon Dioxide 27 mmol/L (20-31); Chloride 105 mmol/L (98-107); Glucose 100 mg/dL (74-106); Sodium 141 mmol/L (136-145)
[2025-05-25 10:18] LABS: Albumin 2.5 g/dL (3.2-4.8); BUN/Creatinine Ratio 7.9 (10.0-20.0); Bilirubin, Total 3.2 mg/dL (0.2-1.0); Blood Urea Nitrogen < 5 mg/dL (9-23); Calcium 7.9 mg/dL (8.7-10.4); Potassium 2.7 mmol/L (3.5-5.1); Total Protein 5.2 g/dL (5.7-8.2)
--- NOTE | 2025-05-25 10:25 | DVH ---
INDICATION:sob TECHNIQUE: Frontal view of the chest. COMPARISON: None. FINDINGS: Linear opacities at the lung bases which could represent platelike atelectasis. CT recommended.. The heart and mediastinal contours are grossly unremarkable. There is no evidence of pleural disease. T he lungs are clear. The bony structures of the chest are intact without fracture. IMPRESSION: 1. Linear opacities at the lung bases which could represent platelike atelectasis. CT recommended.
[2025-05-25] MEDS ORDERED: SPIR100T4 PO (10:56)
[2025-05-25] MEDS: ALBUMIN 5% 250 ML IV ONE (11:18)
[2025-05-25 11:51] VITALS: BP 145/88; PULSE 79; RESP 16; TEMP 97.5; O2SAT 93
[2025-05-25 12:28] VITALS: BP 145/88; PULSE 79; RESP 16; TEMP 97.5; O2SAT 93
--- NOTE | 2025-05-25 13:15 | DVH ---
US PARACENTESIS, HISTORY: ASCITES PROCEDURE: Informed consent was obtained. The patient was placed in supine position. A limited locali zation ultrasound of the abdomen was obtained, and the skin site over the largest pocket of fluid was marked and entry site was prepped with chlorhexidine which was allowed to dry and draped in the usua l sterile fashion. Time out was performed. Following administration of 1% lidocaine local anesthetic, a 8 Turkmen centesis needle catheter was percutaneously inserted into the peritoneal collection until fluid was aspirated. The catheter was advanced into the fluid collection and the needle removed. Abo ut 6050 cc of fluid was aspirated and specimen sent for appropriate cultures/cytology/cultures and cy tology. The catheter was then removed and a sterile dressing applied. No immediate complication was identified. FINDINGS: Limited ultrasound imaging demonstrates moderate ascites. Aspirated fluid was clear and ser ous. IMPRESSION: US-guided paracentesis with 6.1L removed by Dr. Llanes.
--- NOTE | 2025-05-25 14:23 | DVHINCON2 ---
GI Consult Consult Note GI consult note Date of Consultation: 05/2025 Chief Complaint: Liver cirrhosis Referring Physician: Dr. Arias H&P: 50-year-old male with history of liver cirrhosis secondary to alcohol abuse admitted with abdominal distention. Status post paracentesis with 6 L of fluid removed. Patient admits to feeling better. No nausea or vomit. No hematemesis. No melena or red blood in stool. Patient usually follows Dr. Penelope Mcleod on an outpatient basis for liver cirrhosis also Past Medical History: HTN, liver cirrhosis Past Surgical History: Social History: Smoke: <1 pack per day ALCOHOL: heavy Drugs: None, Marijuana Lives: with Family Family History: Noncontributory Review of Systems: Constitutional: no fever, chill, weight loss HEENT: no eye pain, no hearing loss, no oral lesion, no scleral icterus Heart: no chest pain, no chest pressure Lung: no cough, no dyspnea with exertion Abdomen: see HPI Physical exam: General: NAD, AAOX3 Chest: lung oliveira clear to auscultation Heart: RRR, no murmur Abdomen: no tenderness to palpation, +BS Labs: Labs Test 05/25/25 11:00 05/25/25 10:55 05/25/25 09:38 05/24/25 14:37 Range/Units Body Fluid Source Ascites Body Fluid pH 9.0 Body Fluid WBC (Manual) 28 0-200 CUMM Body Fluid RBC (Manual) 158 0-2000 CUMM Body Fluid Mononuclear Cells 95 % Body Fluid Polymorphonuclear Cells 5 0-25 % Ammonia 31 11-32 umol/L White Blood Count 5.0 4.4-10.8 10^3/uL Red Blood Count 3.19 L 4.5-5.90 10^6/uL Hemoglobin 11.6 L 13.5-17.5 g/dL Hematocrit 34.0 #L 41.0-53.0 % Mean Corpuscular Volume 106.6 H 80.0-100.0 fL Mean Corpuscular Hemoglobin 36.4 H 28.0-32.0 pg Mean Corpuscular Hemoglobin Concent 34.1 32.0-36.0 g/dL Red Cell Distribution Width 13.9 11.8-14.3 % Platelet Count 188 140-450 10^3/uL Mean Platelet Volume 7.9 6.9-10.8 fL Neutrophils (%) (Auto) 63.2 37.0-80.0 % Lymphocytes (%) (Auto) 22.2 10.0-50.0 % Monocytes (%) (Auto) 10.7 0.0-12.0 % Eosinophils (%) (Auto) 3.5 0.0-7.0 % Basophils (%) (Auto) 0.4 0.0-2.0 % Neutrophils # (Auto) 3.2 1.6-8.6 10 ^3/uL Lymphocytes # (Auto) 1.1 0.4-5.4 10 ^3/uL Monocytes # (Auto) 0.5 0-1.3 10 ^3/uL Eosinophils # (Auto) 0.2 0-0.8 10 ^3/uL Basophils # (Auto) 0 0-0.2 10 ^3/uL Nucleated Red Blood Cells 0.1 % Sodium Level 141 136-145 mmol/L Potassium Level 2.7 L 3.5-5.1 mmol/L Chloride Level 105 98-107 mmol/L Carbon Dioxide Level 27 20-31 mmol/L Anion Gap 9 5-15 Blood Urea Nitrogen < 5 L 9-23 mg/dL Creatinine 0.63 L 0.700-1.30 mg/dL Glomerular Filtration Rate Calc 115 >90 mL/min BUN/Creatinine Ratio 7.9 L 10.0-20.0 Serum Glucose 100 74-106 mg/dL Calcium Level 7.9 L 8.7-10.4 mg/dL Total Bilirubin 3.2 H 0.2-1.0 mg/dL Aspartate Amino Transferase (AST) 39 13-40 U/L Alanine Aminotransferase (ALT) 21 7-40 U/L Alkaline Phosphatase 96 46-116 U/L Total Protein 5.2 L 5.7-8.2 g/dL Albumin 2.5 L 3.2-4.8 g/dL Prothrombin Time 11.4 9.3-11.8 sec Prothrombin Time INR 1.08 0.9-1.15 Activated Partial Thromboplast Time 28.7 24.5-34.5 SEC B-Type Natriuretic Peptide 107.60 0-100 pg/mL Imaging: Abdominal ultrasound Technique: Real-time ultrasound imaging of the abdomen was performed with wong scale imaging. Indication: FLUID CHECK FOR POSSIBLE PARACENTESIS Comparison: None Findings: Moderate to large volume of ascites fluid Impression: As above Assessment: Liver cirrhosis Ascites alcohol abuse Plan: Discussed with Dr. Harsha SILVESTRE alcohol discussed extensively Outpatient GI follow-up recommended Thank you for this consult Date of Service: May 25, 2025 Billing Provider: ANUM SEPULVEDA Common Visit Codes: CONSULT ONLY Consultation Codes: [id number] CONSULT <45MIN ANUM SEPULVEDA May 25, 2025 14:23
--- NOTE | 2025-05-25 14:50 | DVHDSRES ---
Discharge Summary Date of Admission Resident Creating Document: ELLY SINGLETARY RESIDENT May 24, 2025 at 19:08 Date of Discharge: May 25, 2025 Admitting Diagnosis abdominal distension with ascites Labs/Diagnostic Data: Laboratory Results Test 05/25/25 11:00 05/25/25 10:55 05/25/25 09:38 05/24/25 14:37 Body Fluid Source Ascites Body Fluid pH 9.0 Body Fluid WBC (Manual) 28 CUMM (0-200) Body Fluid RBC (Manual) 158 CUMM (0-2000) Body Fluid Mononuclear Cells 95 % Body Fluid Polymorphonuclear Cells 5 % (0-25) Ammonia 31 umol/L (11-32) White Blood Count 5.0 10^3/uL (4.4-10.8) Red Blood Count 3.19 10^6/uL (4.5-5.90) Hemoglobin 11.6 g/dL (13.5-17.5) Hematocrit 34.0 % (41.0-53.0) Mean Corpuscular Volume 106.6 fL (80.0-100.0) Mean Corpuscular Hemoglobin 36.4 pg (28.0-32.0) Mean Corpuscular Hemoglobin Concent 34.1 g/dL (32.0-36.0) Red Cell Distribution Width 13.9 % (11.8-14.3) Platelet Count 188 10^3/uL (140-450) Mean Platelet Volume 7.9 fL (6.9-10.8) Neutrophils (%) (Auto) 63.2 % (37.0-80.0) Lymphocytes (%) (Auto) 22.2 % (10.0-50.0) Monocytes (%) (Auto) 10.7 % (0.0-12.0) Eosinophils (%) (Auto) 3.5 % (0.0-7.0) Basophils (%) (Auto) 0.4 % (0.0-2.0) Neutrophils # (Auto) 3.2 10 ^3/uL (1.6-8.6) Lymphocytes # (Auto) 1.1 10 ^3/uL (0.4-5.4) Monocytes # (Auto) 0.5 10 ^3/uL (0-1.3) Eosinophils # (Auto) 0.2 10 ^3/uL (0-0.8) Basophils # (Auto) 0 10 ^3/uL (0-0.2) Nucleated Red Blood Cells 0.1 % Sodium Level 141 mmol/L (136-145) Potassium Level 2.7 mmol/L (3.5-5.1) Chloride Level 105 mmol/L (98-107) Carbon Dioxide Level 27 mmol/L (20-31) Anion Gap 9 (5-15) Blood Urea Nitrogen < 5 mg/dL (9-23) Creatinine 0.63 mg/dL (0.700-1.30) Glomerular Filtration Rate Calc 115 mL/min (>90) BUN/Creatinine Ratio 7.9 (10.0-20.0) Serum Glucose 100 mg/dL (74-106) Calcium Level 7.9 mg/dL (8.7-10.4) Total Bilirubin 3.2 mg/dL (0.2-1.0) Aspartate Amino Transferase (AST) 39 U/L (13-40) Alanine Aminotransferase (ALT) 21 U/L (7-40) Alkaline Phosphatase 96 U/L (46-116) Total Protein 5.2 g/dL (5.7-8.2) Albumin 2.5 g/dL (3.2-4.8) Prothrombin Time 11.4 sec (9.3-11.8) Prothrombin Time INR 1.08 (0.9-1.15) Activated Partial Thromboplast Time 28.7 SEC (24.5-34.5) B-Type Natriuretic Peptide 107.60 pg/mL (0-100) Other Laboratory Tests 05/25/25 09:38 Brief Hx & Hospital Course: This is a 50-year old male with liver cirrhosis and alcohol use disorder who came to the hospital due to abdominal distension. As per the patient, his abdominal was getting increasingly distended over the last few days. He was advised by his primary provider to come to the hospital for further evaluation and possible paracentesis. He also had swelling on both his legs. He complained of pain, tightness and burning sensation in his legs. The patient also stated he has itching all over his body over the last few days. He denied any fever, shortness of breath or any nause and vomiting. Patient also did not have any blood in stool or vomitus. On ultrasound, moderate to large volume of ascitic fluid was found and paracentesis was done by interventional radiology. On paracentesis, 6050 ml of cloudy, yellow colored fluid was drained and post op course was uneventful. Patient was discharged home after potassium and albumin replacement. Past medical history:hypertension, liver cirrhosis,hemorrhoids Past surgical history: choecystectomy smoking: <1 pack per day Alcohol: heavy alcohol use Drugs: marijuana use Allergies: no known allergies Patient seen and examined at bedside. Patient is alert and oriented to time, place person and responding to all questions. Eyes: No Pain, No Vision change, No Conjunctivae inflammation, No Eyelid inflammation, No Other, No Redness ENT: No Ear pain, No Ear discharge, No Nose pain, No Nose discharge, No Nose congestion, No Mouth pain, No Mouth swelling, No Throat pain, No Throat swelling, No Other Cardiovascular: No Chest Pain, No Palpitations, No Orthopnea, No Paroxysmal No Dyspnea, No Edema, No Lt Headedness, No Other Respiratory: No Cough, No Dry, No Shortness of breath, No SOB with exertion, No Wheezing, No Hemoptysis, No Pleuritic Pain, No Sputum, No Other Gastrointestinal: No Nausea, No Vomiting, No Abdominal Pain, No Diarrhea, No Constipation, No Melena, No Hematochezia, No Other Genitourinary: No Dysuria, No Frequency, No Incontinence, No Hematuria, No Retention, No Other General Appearance: Cooperative. Well developed. Well nourished. NAD Head Exam: Normal inspection Neck Exam: Normal inspection. Non-tender. Normal alignment Pulmonary/Respiratory: Chest non-tender. Clear bilateral breath sounds, no crackles, no wheezing. Cardiovascular/Chest: Regular rate and rhythm. No murmurs. No JVD. Peripheral Pulses: 2+ Radial (R). 2+ Radial (L). 2+ Pedal (R). 2+ Pedal (L) Abdominal Exam: distened abdomen,bulging flanks, fluid thrill present, shifting dullness,tympanitic on percussion Ankle Exam: Negative ankle edema Lower extremities: 4+ pitting edema Neuro/Mental Status: A&O x4. Coherent. Thoughts/Psych: Normal thought pattern. Appropriate mood and affect. Good judgement and insight Skin Exam: Normal inspection. Normal color. Warm. Dry Operations or Procedures Paracentesis was done by interventional radiology and 6050 ml of cloudy yellow colored fluid was drained. Post op course was uneventful. Albumin was replaced after the procedure. Condition at Discharge: Stable Final Diagnosis/Problems List decompensated liver cirrhosis abdominal distension with ascites alcoholic liver disease Discharge Disposition: Home Discharge Instruct/Medications Diet: Cardiac 2g Na,low cholest Activity: No Restrictions, As Tolerated Follow Up/Referral: pls follow up with pcp pls follow up with GI Medications: furosemide 40mg daily spirinolactone 100mg daily Scheduled Famotidine (Famotidine), 1 TAB PO DAILY, (Reported) Furosemide (Furosemide), 1 TAB PO DAILY, (Reported) Gabapentin (Once-Daily) (Gabapentin), 300 MG PO TID, (Reported) Lactulose (Lactulose), 30 ML PO DAILY, (Reported) Spironolactone (Spironolactone), 1 TAB PO DAILY Ursodiol (Ursodiol), 300 MG PO BID Discontinued Medications Methylprednisolone (Medrol Dosepak), 4 MG PO UD Spironolactone (Spironolactone), 1 TAB PO DAILY, (Reported) Discharge Statement: "Patient was advised to return to the ER or call 911 if any headaches, dizziness, shortness of breath, chest pain, abdominal pain, bleeding, fevers, or worsening of medical condition. Patient was counseled about treatment plan, medications, possible side effects, patientverbalized understanding. All questions were answered to the best of my ability. This discharge took greater then 30 minutes in planning, reviewing documentation, counseling the patient, and discussing with other team members." ASSESSMENT ASSESSMENT Hospital Course This is a 50-year old male with liver cirrhosis and alcohol use disorder who came to the hospital due to abdominal distension. As per the patient, his abdominal was getting increasingly distended over the last few days. He was advised by his primary provider to come to the hospital for further evaluation and possible paracentesis. He also had swelling on both his legs. He complained of pain, tightness and burning sensation in his legs. The patient also stated he has itching all over his body over the last few days. He denied any fever, shortness of breath or any nause and vomiting. Patient also did not have any blood in stool or vomitus. On ultrasound, moderate to large volume of ascitic fluid was found and paracentesis was done by interventional radiology. On paracentesis, 6050 ml of turbid fluid was drained and post op course was uneventful. Patient was discharged home after potassium and albumin replacement. Assessment decompensated liver cirrhosis abdominal distension with ascites alcoholic liver disease ELLY SINGLETARY RESIDENT May 25, 2025 14:50
[2025-05-25 16:47] VITALS: BP 134/79; PULSE 88; RESP 17; TEMP 97.4; O2SAT 99
[2025-05-25] MEDS: POTASSIUM CHL 20MEQ/100ML 100 ML IV ONE (18:09)
[2025-05-25] MEDS: POTASSIUM CHL 20MEQ/100ML 100 ML IV SCH (18:10)
[2025-05-26 14:07] LABS: Glucose, Body Fluid 116.0 mg/dL (.); LD, Body Fluid 42.0 IU/L (.)
== END 2025-05-25 20:04 | disposition home or self-care (01) | DRG 433 ==
LOC: ER 13:06 → OVERFLOW 19:08 → WEST WING 22:51
PROVIDERS: ADMIT Internal Medicine Geriatric Medicine; ATTEND Internal Medicine Geriatric Medicine
PROC: 0W9G3ZZ Drainage of Peritoneal Cavity, Percutaneous Approach (ICD-10-PCS; principal; 2025-05-25)
DX: K70.31 Alcoholic cirrhosis of liver with ascites (principal); D61.818 Other pancytopenia; I10 Essential (primary) hypertension; F17.210 Nicotine dependence, cigarettes, uncomplicated; R74.01 Elevation of levels of liver transaminase levels; F12.90 Cannabis use, unspecified, uncomplicated; Z90.49 Acquired absence of other specified parts of digestive tract
CPT/HCPCS: 36415; 49083; 71045; 76705; 76942; 80053; 82140; 83880; 83986; 85025; 85610; 85730; 87205; 89051; 96374; G0378; J3480

== ENCOUNTER 2025-07-11 12:15 | Outpatient (CLI) | payer BC ==
[~2025-07-11 12:15] MED LIST changes: +FAMO40TA7 PO; +FURO40TA4 PO; +LACT10SO3 PO; -LEVO500T91 PO; -METH4PAK PO; +SPIR100T4 PO
[2025-07-11 12:56] LABS: Hematocrit 42.5 % (41.0-53.0); Hemoglobin 14.7 g/dL (13.5-17.5); Mean Corpuscular Hemoglobin 32.9 pg (28.0-32.0); Mean Corpuscular Volume 95.6 fL (80.0-100.0); Nucleated Red Blood Cells % 0.1 %
[2025-07-11 13:33] LABS: Alanine Aminotransferase 15 U/L (7-40); Albumin 4.6 g/dL (3.2-4.8); Alkaline Phosphatase 82 U/L (46-116); Anion Gap 11 (5-15); BUN/Creatinine Ratio 6.3 (10.0-20.0); Carbon Dioxide 26 mmol/L (20-31); Chloride 102 mmol/L (98-107); Glucose 89 mg/dL (74-106); Potassium 4.8 mmol/L (3.5-5.1); Sodium 139 mmol/L (136-145)
[2025-07-11 13:34] LABS: Magnesium 2.0 mg/dL (1.6-2.6)
[2025-07-11 13:35] LABS: Bilirubin, Total 1.0 mg/dL (0.2-1.0); Blood Urea Nitrogen 6 mg/dL (9-23); Calcium 10.6 mg/dL (8.7-10.4); Cholesterol 260 mg/dL (< 200); HDL Cholesterol 54 mg/dL (40-59); Total Protein 9.0 g/dL (5.7-8.2); Triglycerides 225 mg/dL (< 150)
[2025-07-11 14:07] LABS: Uric Acid 6.4 mg/dL (3.7-9.2)
== END 2025-07-11 17:00 | disposition home or self-care (01) ==
LOC: LAB 12:15
PROVIDERS: ATTEND Internal Medicine
DX: E11.9 Type 2 diabetes mellitus without complications (principal); E78.49 Other hyperlipidemia; E61.2 Magnesium deficiency; E79.0 Hyperuricemia without signs of inflammatory arthritis and tophaceous disease; E55.9 Vitamin D deficiency, unspecified; D51.9 Vitamin B12 deficiency anemia, unspecified; R82.79 Other abnormal findings on microbiological examination of urine; R82.90 Unspecified abnormal findings in urine; R82.998 Other abnormal findings in urine; R94.6 Abnormal results of thyroid function studies; R68.89 Other general symptoms and signs
CPT/HCPCS: 36415; 80053; 80061; 82306; 82607; 82746; 83036; 83735; 84443; 84550; 85025

== ENCOUNTER 2025-08-15 09:47 | Outpatient (CLI) | payer BC ==
[2025-08-15 10:41] LABS: INR 1.03 (0.9-1.15); Partial Thromboplastin Time 29.6 SEC (24.5-34.5); Prothrombin Time 10.9 sec (9.3-11.8)
== END 2025-08-15 17:00 | disposition home or self-care (01) ==
LOC: LAB 09:47
PROVIDERS: ATTEND Internal Medicine
DX: R79.1 Abnormal coagulation profile (principal)
CPT/HCPCS: 36415; 85610; 85730